=== PATIENT | female | born 1970 | race Caucasian/White ===

== ENCOUNTER 2017-02-01 15:05 | Day surgery (SDC) | payer OTHER ==
[~2017-02-01] VITALS: Ht 165.1 cm; Wt 104.9 kg
[2017-02-01] VITALS (20 sets, daily range): BP systolic 111–177; BP diastolic 54–94; PULSE 62–101; RESP 16–22; TEMP 96.9–98.3; O2SAT 90–100; Ht 165.1 cm; Wt 104.9 kg
--- OUTSIDE RECORDS SUMMARY | 2017-02-01 15:10 | XMS REPORT | Summary of Care ---
Author Author Mann Avery D.O. Organization Unknown Address Unknown Phone Unavailable Care Team Providers Care Teletypewriter Operator Name Role Phone Mann Avery D.O. Unavailable Unavailable Kris Dunn, Ivan Unavailable Unavailable Jose Dunn, Lionel Unavailable Unavailable Mann Avery PP Unavailable Unavailable Unavailable Functional Status Functional Status Health Issues* Name Dates Details Functional status health issues are not documented Status: Cognitive Status Health Issues* Name Dates Details Cognitive status health issues are not documented Status: Problems Name Dates Details Cutaneous candidiasis (112.3, B37.2) Status: Active Atopic dermatitis (691.8, L20.9) Status: Active Chronic laryngitis (476.0, J37.0) Status: Active Esophageal reflux (530.81, K21.9) Status: Active Edema (782.3, R60.9) Status: Active Hypertension (401.9, I10) Status: Active Vasculitis (447.6, I77.6) Status: Active Allergic purpura (287.0, D69.0) Status: Active Lipoma of skin (214.1, D17.30) Status: Active Abscess, abdomen (567.22, K65.0) Status: Active Candidiasis, intertriginous (112.3, B37.2) Status: Active 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, 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 Fever (780.60, R50.9) Status: Active Influenza A with respiratory manifestations (487.1, J11.1) Status: Active Candidiasis, mouth (112.0, B37.0) Status: Active Cough (786.2, R05) Status: Active Type 1 diabetes mellitus (250.01, E10.9) Status: Active Hematuria (599.70, R31.9) Status: Active Type 2 diabetes mellitus (250.00, E11.9) Status: Active Proteinuria (791.0, R80.9) Status: Active Medications Name Dates Details Estradiol 1 MG Oral Tablet take one tablet by mouth every day Quantity: 30 Mann Avery D.O.* Started 07-Jun-2011 ActiveSimvastatin 20 MG Oral Tablet TAKE ONE TABLET BY MOUTH EVERY NIGHT AT BEDTIME * Quantity: 90 Refills: 3 Mann Avery D.O.* Started 20-Sep-2011 ActiveLosartan Potassium 50 MG Oral Tablet take one tablet by mouth every day * Quantity: 90 Refills: 2 Mann Avery D.O.* Started 18-Dec-2011 ActiveCetirizine HCl - 10 MG Oral Tablet TAKE 1 TABLET BY MOUTH DAILY. * Quantity: 100 Refills: 0 Mann Avery D.O.* Started 18-Dec-2011 ActiveMultiple Vitamin Oral Tablet TAKE 1 TABLET DAILY. * Refills: 0 Lionel Garcia M.D.* Started 18-Dec-2011 ActiveGlyBURIDE 5 MG Oral Tablet TAKE 1 TABLET BY MOUTH TWO TIMES A DAY * Quantity: 120 Refills: 5 Mann Avery D.O.* Started ActiveMontelukast Sodium 10 MG Oral Tablet take one tablet by mouth every day * Quantity: 30 Refills: 5 Mann Avery D.O.* Started 13-Jun-2012 ActiveProAir HFA 108 (90 Base) MCG/ACT Inhalation Aerosol Solution INHALE TWO PUFFS THREE TIMES DAILY * Quantity: 1 Refills: 0 Mann Avery D.O.* Started 16-Oct-2013 Active8.5 GM Inhaler Lantus SoloStar 100 UNIT/ML Subcutaneous Solution Pen-injector TAKE 80 UNITS EVERY NIGHT AT BEDTIME DX: 250.01 * Quantity: 45 Refills: 5 Mann Avery D.O.* Started ActiveAzaTHIOprine 50 MG Oral Tablet TAKE 3 TABLETS BY MOUTH DAILY * Quantity: 90 Refills: 5 Vladislav Ponce M.D.* Started ActiveFluconazole 150 MG Oral Tablet Take 1 tablet daily * Quantity: 7 Refills: 0 Mann Avery D.O.* Started 19-Oct-2014 ActiveNystatin 423670 UNIT/ML Mouth/Throat Suspension CHEW 5 ML Twice daily Swish and Swallow * Quantity: 1 Refills: 1 Mann Avery D.O.* Started 19-Oct-2014 Nzhobc23 ML Bottle Levofloxacin 500 MG Oral Tablet Take 1 tablet daily * Quantity: 7 Refills: 0 Mann Avery D.O.* Started 19-Oct-2014 ActiveTradjenta 5 MG Oral Tablet TAKE 1 TABLET DAILY DIRECTED. * Refills: 0 Mann Avery.O.* Started 30-Oct-2014 Active Allergies and Adverse Reactions Name Dates Details Clindamycin Reaction: Hives (Severe) Status: Active MethylPREDNISolone Acetate SUSP Status: Active Zithromax TABS Status: Active Latex Status: Denied Past Medical History Name Dates Details History of acute bronchitis (V12.69, Z87.09) Status: Resolved History of Acute sinusitis (461.9, J01.90) Status: Resolved History of Acute upper respiratory infection (465.9, J06.9) Status: Resolved History of Asthmatic bronchitis (493.90, J45.909) Status: Resolved History of fever (V13.89, Z87.898) Status: Resolved History of Otitis media of both ears (382.9, H66.93) Status: Resolved History of Pre-operative exam (V72.84, Z01.818) Status: Resolved History of Sinusitis (473.9, J32.9) Status: Resolved History of Tenosynovitis of thumb (727.05, M65.88) Status: Resolved Procedures Procedure Dates Details History of Hand Incision Tendon Sheath Of A Finger Completed: History of Neuroplasty Decompression Median Nerve At Carpal Tunnel History of Section History of Breast Surgery Reduction Procedure History of Cholecystectomy Laparoscopic History of Total Abdominal Hysterectomy With Removal Of Both Ovaries CT AB/ PEL WITH IV AND ORAL CONTRAST Ordered:30-Oct-2014 Immunization Name Dates Details Td Administered on:07-Jun-2001 Family History Mother* Name Dates Details Family history of diabetes mellitus (V18.0, Z83.3) Status: Active Father* Name Dates Details Family history of diabetes mellitus (V18.0, Z83.3) Status: Active Social History Name Dates Details Smoking Status* Current every day smoker Stopped 01-Sep-2014 * Former smoker Vital Signs Date Test Result Details 30-Oct-2014 09:22 BP Systolic 146 mm[Hg] Status: BP Diastolic 84 mm[Hg] Status: Heart Rate 96 /min Status: Temperature 98.5 f Status: Weight 263 lb Status: Body Mass Index Calculated 44.45 kg/m2 Status: Body Surface Area Calculated 2.21 m2 Status: 19-Oct-2014 15:36 BP Systolic 136 mm[Hg] Status: BP Diastolic 84 mm[Hg] Status: Heart Rate 84 /min Status: Temperature 98.7 f Status: Weight 263 lb Status: Body Mass Index Calculated 44.45 kg/m2 Status: Body Surface Area Calculated 2.21 m2 Status: 16-Oct-2014 13:57 BP Systolic 130 mm[Hg] Status: BP Diastolic 90 mm[Hg] Status: Heart Rate 108 /min Status: Temperature 100.8 f Status: Weight 260 lb Status: Body Mass Index Calculated 43.94 kg/m2 Status: Body Surface Area Calculated 2.2 m2 Status: Results Date Description Value Details 16-Oct-2014 14:45 INFLUENZA A/B ANTIGEN 5320 *INFLUENZA A/B ANTIGEN Positive for Influenza A (Abnormal) Range: Negative 19-Oct-2014 16:27 XRay CHEST-PA & LAT Comments: Exam Date: 16: 09Dictation Date: 16:27 X CHEST PA & LAT (Better) 28-Oct-2014 16:28 Urinalysis, reflex to Micro and Culture ([facility]) 8016 pH 6.0 (Better) Range: 5.0-7.5 SP GRAVITY 1.030 (Better) Range: 1.010-1.030 APPEARANCE Cloudy (Abnormal) Range: Clear COLOR Yellow (Better) Range: Straw-Yellow PROTEIN 100 mg/dL (Abnormal) Range: Negative-Trace GLUCOSE 1000 mg/dL (Abnormal) Range: Negative KETONES Negative mg/dL (Better) Range: Negative BILIRUBIN Negative (Better) Range: Negative BLOOD 3+ (Abnormal) Range: Negative UROBIL 0.2 EU/dL (Better) Range: 0.2-1.0 NITRITE Negative (Better) Range: Negative LEUKOCYTES Negative (Better) Range: Negative 17:02 Urine Microscopic UMIC RBC 11-20 /HPF (Abnormal) Range: 0-2 BACTERIA Trace /HPF (Better) Range: Negative-Trace EPITH 3-5 /HPF (Better) Range: 0-10 17:10 Comprehensive Metabolic Panel 1212 SODIUM 137 mmol/L (Better) Range: 133-144 POTASSIUM 4.2 mmol/L (Better) Range: 3.5-5.1 CHLORIDE 97 mmol/L (Below low threshold) Range: 98-110 CARBON DIOXIDE 28.6 mmol/L (Better) Range: 23.0-33.0 ANION GAP 11 mmol/L (Better) Range: 6-16 BUN 15 mg/dL (Better) Range: 7-18 CREATININE, SERUM 0.86 mg/dL (Better) Range: 0.43-1.13 BUN:CREATININE RATIO 17 (Better) EST GFR, >60 ml/min (Better) Range: >60 EST GFR, NON-AFR YEMENI >60 ml/min (Better) Range: >60 Comments: EST GFR is reported in ml/min per 1.73 m2 of body surface area. For -Mexican, please multiple result by 1.2.----- GLUCOSE 337 mg/dL (Above high threshold) Range: 70-100 ALK PHOSPHATASE 76 U/L (Better) Range: 46-116 Comments: Please Note: New Reference Range effective 2013.----- TOTAL BILIRUBIN 0.60 mg/dL (Better) Range: 0.20-1.00 AST 17 U/L (Better) Range: 8-35 ALT 18 U/L (Better) Range: 12-78 ALBUMIN 3.2 g/dL (Below low threshold) Range: 3.4-5.0 TOTAL PROTEIN 7.5 g/dL (Better) Range: 6.4-8.2 A/G RATIO 0.7 units (Below low threshold) Range: 1.0-1.8 CALCIUM 9.3 mg/dL (Better) Range: 8.5-10.1 29-Oct-2014 08:39 HEMOGLOBIN A1C 3507 Hemoglobin A1C 11.2 % (Better) ESTIMATED AVG. GLUCOSE 275 (Better) Plan of Care Planned Observations* Name Dates Details Planned Goals not documented Goal Planned Encounters* Appointment; Provider: Vladislav Ponce On 08-Feb-2015 15:45 * Appointment; Provider: Mann Avery On 04-Dec-2014 13:30 * Appointment; Provider: Benji Olson On 09-Nov-2014 10:30 Instructions * Instructions not documented Encounters Appointment; Mann Avery Encounter Diagnosis: Problem not documented On 30-Oct-2014 09:30 Appointment; Mann Avery Encounter Diagnosis: Problem not documented On 19-Oct-2014 15:45 Appointment; Kairn Lackey Encounter Diagnosis: Problem not documented On 16-Oct-2014 13:15 Appointment; Vladislav oPnce Encounter Diagnosis: Problem not documented On 09-Oct-2014 15:30 Appointment; Heriberto Mckeon Encounter Diagnosis: Problem not documented On 02-Oct-2014 07:45 Appointment; Vaughn London Encounter Diagnosis: Problem not documented On 11-Sep-2014 09:00 Appointment; Vaughn London Encounter Diagnosis: Problem not documented On 01-Sep-2014 13:15 Appointment; Mann Avery Encounter Diagnosis: Problem not documented On 28-Aug-2014 15:15 Appointment; Mann Avery Encounter Diagnosis: Problem not documented On 08-Jul-2014 15:30 Appointment; Vladislav Ponce Encounter Diagnosis: Problem not documented On 03-Jul-2014 10:15 Appointment; Tito Almaguer Encounter Diagnosis: Problem not documented On 23-Jun-2014 15:30 Appointment; Mann Avery Encounter Diagnosis: Problem not documented On 11-Jun-2014 09:15 Appointment; Vladislav Ponce Encounter Diagnosis: Problem not documented On 02-Jun-2014 16:00 Appointment; Mann Avery Encounter Diagnosis: Problem not documented On 28-May-2014 15:45 Appointment; Vladislav Ponce Encounter Diagnosis: Problem not documented On 11:15 Appointment; Tito Almaguer Encounter Diagnosis: Problem not documented On 13:15 Appointment; Tito Almaguer Encounter Diagnosis: Problem not documented On 12:30 Appointment; Vladislav Ponce Encounter Diagnosis: Problem not documented On 11:30 Appointment; Mann Avery Encounter Diagnosis: Problem not documented On 10:45 Appointment; Mann Avery Encounter Diagnosis: Problem not documented On 15:00 Appointment; Mann Avery Encounter Diagnosis: Problem not documented On 02-Mar-2014 09:30 Appointment; Mann Avery Encounter Diagnosis: Problem not documented On 27-Jan-2014 12:45 Appointment; Mann Avery Encounter Diagnosis: Problem not documented On 10-Nov-2013 11:00 Appointment; Mann Avery Encounter Diagnosis: Problem not documented On 16-Oct-2013 11:45 Appointment; Mann Avery Encounter Diagnosis: Problem not documented On 29-Jul-2013 15:30 Appointment; Mann Avery Encounter Diagnosis: Problem not documented On 14-Jul-2013 15:45 Appointment; Mann Avery Encounter Diagnosis: Problem not documented On 30-Jun-2013 15:30 Appointment; Mann Avery Encounter Diagnosis: Problem not documented On 24-Jun-2013 12:30 Appointment; Mann Avery Encounter Diagnosis: Problem not documented On 20-Jun-2013 16:15 Appointment; Mann Avery Encounter Diagnosis: Problem not documented On 18-Jun-2013 16:15 Appointment; Mann Avery Encounter Diagnosis: Problem not documented On 16-Jun-2013 09:00 Appointment; Dave Gilbert Encounter Diagnosis: Problem not documented On 14-Jun-2013 08:30 Appointment; Mann Avery Encounter Diagnosis: Problem not documented On 29-Jan-2013 13:00 Appointment; Lionel Garcia Encounter Diagnosis: Problem not documented On 27-Jan-2013 15:30 Appointment; Mann Avery Encounter Diagnosis: Problem not documented On 25-Nov-2012 14:45
--- OUTSIDE RECORDS SUMMARY | 2017-02-01 15:10 | XMS REPORT | Summary of Care ---
Author Author Mann Avery D.O. Organization Unknown Address [address] [place] [place], [place] [id number] Phone Unavailable Care Team Providers Care Regeneration Operator Name Role Phone Mann Avery D.O. Unavailable Unavailable Ivan Ponce M.D. Unavailable Unavailable Jose Dunn, Lionel Unavailable Unavailable Mann Avery Unavailable Unavailable Unavailable Unavailable Functional Status Name Dates Details Functional status health issues are not documented Status: Name Dates Details Cognitive status health issues are not documented Status: Problems Name Dates Details Cutaneous candidiasis (112.3, B37.2) Status: Active Chronic laryngitis (476.0, J37.0) Status: Active Esophageal reflux (530.81, K21.9) Status: Active Edema (782.3, R60.9) Status: Active Vasculitis (447.6, I77.6) Status: Active Allergic purpura (287.0, D69.0) Status: Active Lipoma of skin (214.1, D17.30) Status: Active Abscess, abdomen (567.22, K65.1) Status: Active Influenza A with respiratory manifestations (487.1, J10.1) Status: Active Type 1 diabetes mellitus (250.01, E10.9) Status: Active Proteinuria (791.0, R80.9) Status: Active Nephrolithiasis (592.0, N20.0) Status: Active Type 2 diabetes mellitus (250.00, E11.9) Status: Active Allergic rhinitis (477.9, J30.9) Status: Active 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, 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 Hair loss (704.00, L65.9) Status: Active Hypertension (401.9, I10) Status: Active Uncontrolled diabetes mellitus (250.02, E11.65) Status: Active Acute ethmoidal sinusitis, recurrence not specified (461.2, J01.20) Status: Active Acute maxillary sinusitis, recurrence not specified (461.0, J01.00) Status: Active Wheezing symptom (786.07, R06.2) Status: Active Acute bronchitis, unspecified organism (466.0, J20.9) Status: Active Bladder infection (595.9, N30.90) Status: Active Urinary tract infection (599.0, N39.0) Status: Active Medications Name Dates Details Estradiol 1 MG Oral Tablet TAKE ONE TABLET BY MOUTH DAILY - PT NEEDS APPT Quantity: 30 Bennie D.Zechariha.Mann * Start 06-Oct-2016 Active Simvastatin 20 MG Oral Tablet TAKE ONE TABLET BY MOUTH AT BEDTIME * Quantity: 90 Refills: 4 Bennie D.O.Mann * Start 22-May-2016 Active Losartan Potassium 50 MG Oral Tablet Take one tablet by mouth daily * Quantity: 90 Refills: 2 Bennie Asif.Zechariah.Mann * Start 29-Dec-2016 Active Multiple Vitamin TABS TAKE 1 TABLET DAILY. * Refills: 0 Lionel Garcia M.D. * Start 18-Dec-2011 Active GlyBURIDE 5 MG Oral Tablet Take One Tablet By Mouth Twice Daily * Quantity: 120 Refills: 4 Bennie D.O.Mann * Start 29-Dec-2016 Active Montelukast Sodium 10 MG Oral Tablet Take one tablet by mouth daily * Quantity: 30 Refills: 4 Bennie Asif.Mann Jang * Start 29-Dec-2016 Active Lantus SoloStar 100 UNIT/ML Subcutaneous Solution Pen-injector INJECT 80 UNITS SUBCUTANEOUSLY EVERY NIGHT AT BEDTIMEDX: E11.9 * Quantity: 45 Refills: 5 Bennie Asif.Mann Jang * Start Active AzaTHIOprine 50 MG Oral Tablet take 3 tablets by mouth every day * Quantity: 90 Refills: 11 Vladislav Ponce M.D. * Start Active Invokana 300 MG Oral Tablet Take 1 tablet daily * Quantity: 30 Refills: 5 Bennie D.OMann Santiago * Start 11-Jan-2015 Active Levemir FlexTouch 100 UNIT/ML Subcutaneous Solution Pen-injector INJECT 80 UNIT Bedtime DX: E11.9 * Quantity: 75 Refills: 3 Bennie D.O.Mann * Start 25-Feb-2016 Active Ciprofloxacin HCl - 500 MG Oral Tablet TAKE 1 TABLET TWICE DAILY. * Quantity: 10 Refills: 0 Mann Avery D.O. * Start 23-Jan-2017 Active Phenazopyridine HCl - 100 MG Oral Tablet Take 1 tablet twice daily * Quantity: 6 Refills: 0 Bennie D.Mann Jang * Start 23-Jan-2017 Active Allergies and Adverse Reactions Name Dates Details Clindamycin (Allergy) Reaction: Hives (Severe) Status: Active MethylPREDNISolone Acetate SUSP (Allergy) Status: Active Zithromax TABS (Allergy) Status: Active Latex (Allergy) Status: Denied Past Medical History Name Dates Details History of acute bronchitis (V12.69, Z87.09) Status: Resolved History of Acute sinusitis (461.9, J01.90) Status: Resolved History of Acute upper respiratory infection (465.9, J06.9) Status: Resolved History of Asthmatic bronchitis (493.90, J45.909) Status: Resolved History of atopic dermatitis (V13.3, Z87.2) Status: Resolved History of candidiasis of mouth (V12.09, Z86.19) Status: Resolved History of Candidiasis, intertriginous (112.3, B37.2) Status: Resolved History of fever (V13.89, Z87.898) Status: Resolved History of fever (V13.89, Z87.898) Status: Resolved History of hematuria (V13.09, Z87.448) Status: Resolved History of Otitis media of both ears (382.9, H66.93) Status: Resolved History of Pre-operative exam (V72.84, Z01.818) Status: Resolved History of Sinusitis (473.9, J32.9) Status: Resolved History of Tenosynovitis of thumb (727.05, M65.9) Status: Resolved History of Yeast infection (112.9, B37.9) Status: Resolved Procedures Procedure Dates Details History of Hand Incision Tendon Sheath Of A Finger Completed: History of Neuroplasty Decompression Median Nerve At Carpal Tunnel History of Section History of Breast Surgery Reduction Procedure History of Cholecystectomy Laparoscopic History of Total Abdominal Hysterectomy With Removal Of Both Ovaries Urinalysis, reflex to Micro and Culture ([facility]) 8016 Ordered: Jan-2017 Immunization Name Dates Details Td on: 07-Jun-2001 Family History Name Dates Details Family history of hypertension (V17.49, Z82.49) Comments: Family History Status: Active Family history of kidney stones (V18.69, Z84.1) Comments: Family History Status: Active Family history of malignant neoplasm (V16.9, Z80.9) Comments: Family History Status: Active Name Dates Details Family history of diabetes mellitus (V18.0, Z83.3) Status: Active Name Dates Details Family history of diabetes mellitus (V18.0, Z83.3) Status: Active Family history of malignant neoplasm of urinary bladder (V16.52, Z80.52) Status: Active Social History Name Dates Details Unknown if ever smoked Vital Signs Date Test Result Details 23-Jan-2017 11:36 BP Systolic 132 mm[Hg] Status: Comments: Location: ; Position: BP Diastolic 76 mm[Hg] Status: Comments: Location: ; Position: Temperature 97.7 f Status: Comments: Method: Heart Rate 88 /min Status: Comments: Location: ; Physical Findings 20 Status: Comments: Respiration Physical Findings 97 Status: Comments: O2 Saturation Results Date Description Value Details 23-Jan-2017 11:51 Urinalysis, reflex to Micro and Culture ([facility]) 8016 Comments: Items were attached to this order: UA for [facility] were attached to this order: Urinalysis Label pH 5.5 Range: 5.0-7.5 SP GRAVITY 1.030 Range: 1.010-1.030 APPEARANCE Cloudy (Abnormal) Range: Clear COLOR Yellow Range: Straw-Yellow PROTEIN 100 mg/dL (Abnormal) Range: Negative-Trace GLUCOSE 1000 mg/dL (Abnormal) Range: Negative KETONES Negative mg/dL Range: Negative BILIRUBIN Negative Range: Negative BLOOD 3+ (Abnormal) Range: Negative UROBIL 0.2 EU/dL Range: 0.2-1.0 NITRITE Negative Range: Negative LEUKOCYTES Negative Range: Negative 13:22 Urine Microscopic UMIC Comments: Items were attached to this order: UA for [facility] were attached to this order: Urinalysis Label WBC 3-5 /HPF Range: 0-5 RBC 3-5 /HPF (Abnormal) Range: 0-2 BACTERIA 1+ /HPF (Abnormal) Range: Negative-Trace U AMORPH 1+ /HPF U YEAST Present (Abnormal) Range: Absent Plan of Care Name Dates Details Planned Observations Planned Goals not documented Planned Encounters Appointment; Provider: Vladislav Ponce M.D. On 13-Jul-2017 15:45 Instructions Name Dates Details Instructions not documented Encounters Appointment; Mann Avery D.O. Encounter Diagnosis: Problem not documented On 23-Jan-2017 11:29 Appointment; Mann Avery D.O. Encounter Diagnosis: Problem not documented On 12-Dec-2016 16:00 Appointment; Mann Avery D.O. Encounter Diagnosis: Problem not documented On 26-Oct-2016 11:45 Appointment; Mann Avery D.O. Encounter Diagnosis: Problem not documented On 06-Oct-2016 15:30 Appointment; Mann Avery D.O. Encounter Diagnosis: Problem not documented On 21-Sep-2016 14:45 Appointment; Vladislav Ponce M.D. Encounter Diagnosis: Problem not documented On 07-Jul-2016 14:45 Appointment; Vladislav Ponce M.D. Encounter Diagnosis: Problem not documented On 07-Jun-2015 16:00 Appointment; Mann Avery D.O. Encounter Diagnosis: Problem not documented On 31-May-2015 15:45 Appointment; Mann Avery D.O. Encounter Diagnosis: Problem not documented On 08:45
--- OUTSIDE RECORDS SUMMARY | 2017-02-01 15:11 | XMS REPORT ---
Author Author GENERATED, SYSTEM Organization Unknown Address Unknown Phone Unavailable Care Team Providers Care Vulnerability Assessment Analyst Name Role Phone UNASSIGNED DOCTOR , DOCTOR PP [phone] Reason For Visit Chief Complaint 599.7 Social History Functional Status Vital Signs Results Problems Encounter Diagnosis No relevant problems exist. Encounters Encounter Diagnosis No relevant problems exist. Plan of Care Procedures No relevant procedures performed. Immunizations No immunizations administered or ordered. Hospital Course Hospital Discharge Instructions Allergies, Adverse Reactions, Alerts * Latex Allergy has not been assessed. * IV Contrast Allergy has not been assessed. Medication Medication reconciliation has not been performed.
--- OUTSIDE RECORDS SUMMARY | 2017-02-01 15:11 | XMS REPORT | Summary of Care ---
Author Author Mann Avery D.O. Organization Unknown Address Unknown Phone Unavailable Care Team Providers Care Circuits Engineer Name Role Phone Mann Avery D.O. Unavailable [...] 0 Mann Avery D.O.* Started 19-Oct-2014 ActiveNystatin 123423 UNIT/ML Mouth/Throat Suspension CHEW 5 ML Twice daily Swish and Swallow * Quantity: 1 Refills: 1 Mann Avery D.O.* Started 19-Oct-2014 [id number] ML Bottle Levofloxacin 500 MG Oral Tablet [...] 16:28 Urinalysis, reflex to Micro and Culture ([facility]) 8016 pH 6.0 (Better) Range: 5.0-7.5 SP [...] ml/min (Better) Range: >60 EST GFR, NON-AFR TAJIK >60 ml/min (Better) Range: >60 Comments: EST GFR is reported in ml/min per 1.73 m2 of body surface area. For -Croatian, please multiple result by 1.2.----- GLUCOSE 337 [...] Problem not documented On 19-Oct-2014 15:45 Appointment; Karin Lackey Encounter Diagnosis: Problem not documented On 16-Oct-2014 13:15 Appointment; Vladislav Pnoce Encounter Diagnosis: Problem not documented On 09-Oct-2014 [...] Diagnosis: Problem not documented On 25-Nov-2012 14:45 Appointment; Mann Avery Encounter Diagnosis: Problem not documented On 04-Nov-2012 12:45
--- OUTSIDE RECORDS SUMMARY | 2017-02-01 15:11 | XMS REPORT | Summary of Care ---
Author Author Vladislav Ponce M.D. Unknown Address Unknown Phone Unavailable Care Team Providers Care Technology Applications Teacher Name Role Phone Mann Avery D.O. Unavailable Unavailable Ivan Ponce M.D. Unavailable Unavailable Lionel Garcia M.D. Unavailable Unavailable Mann Avery Unavailable Unavailable Unavailable [...] Active Abscess, abdomen (567.22, K65.1) Status: Active Candidiasis, intertriginous (112.3, B37.2) Status: Active Fever (780.60, R50.9) Status: Active Influenza A with respiratory manifestations (487.1, J10.1) Status: Active Candidiasis, mouth (112.0, B37.0) Status: Active Type 1 diabetes mellitus (250.01, E10.9) Status: Active Proteinuria (791.0, R80.9) Status: Active Hematuria (599.70, R31.9) Status: Active Nephrolithiasis (592.0, N20.0) Status: Active Type 2 diabetes mellitus (250.00, E11.9) Status: Active Yeast infection (112.9, B37.9) Status: Active Allergic rhinitis (477.9, J30.9) Status: Active 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 * Start 06-Jul-2016 Active Simvastatin 20 MG Oral Tablet TAKE ONE TABLET BY MOUTH AT BEDTIME * Quantity: 90 Refills: 4 Mann Avery D.O. * Start 22-May-2016 Active Losartan Potassium 50 MG Oral Tablet Take one tablet by mouth daily * Quantity: 90 Refills: 1 Mann Avery D.O. * Start 18-Dec-2011 Active Cetirizine HCl - 10 MG Oral Tablet TAKE 1 TABLET BY MOUTH DAILY. * Quantity: 100 Refills: 0 Mann Avery D.O. * Start 18-Dec-2011 Active Multiple Vitamin TABS TAKE 1 TABLET DAILY. * Refills: 0 Lionel Garcia M.D. * Start 18-Dec-2011 Active GlyBURIDE 5 MG Oral Tablet Take One Tablet By Mouth Twice Daily * Quantity: 120 Refills: 5 Mann Avery D.O. * Start Active Montelukast Sodium 10 MG Oral Tablet take one tablet by mouth every day * Quantity: 30 Refills: 4 Mann Avery D.O. * Start 22-May-2016 Active ProAir HFA 108 (90 Base) MCG/ACT Inhalation Aerosol Solution INHALE TWO PUFFS THREE TIMES DAILY * Quantity: 1 Refills: 0 Mann Avery D.O. Start 16-Oct-2013 Active 8.5 GM Inhaler Lantus SoloStar 100 UNIT/ML Subcutaneous Solution Pen-injector INJECT 80 UNITS SUBCUTANEOUSLY EVERY NIGHT AT BEDTIMEDX: E11.9 * Quantity: 45 Refills: 5 Mann Avery D.O. * Start Active AzaTHIOprine 50 MG Oral Tablet take 3 tablets by mouth every day * Quantity: 90 Refills: 11 Vladislav Ponce M.D. * Start Active Invokana 300 MG Oral Tablet Take 1 tablet daily * Quantity: 30 Refills: 5 Mann Avery D.O. Start 11-Jan-2015 Active Nasonex 50 MCG/ACT Nasal Suspension INSTILL 2 SQUIRT Twice daily PRN * Refills: 6 Bennie Asif.O., Mann * Start Active 17 GM Inhaler LevoFLOXacin 500 MG Oral Tablet TAKE 1 TABLET DAILY DIRECTED. * Quantity: 10 Refills: 0 Avery D.O., Mann * Start 31-May-2015 Active Levemir FlexTouch 100 UNIT/ML Subcutaneous Solution Pen-injector INJECT 80 UNIT Bedtime DX: E11.9 * Quantity: 75 Refills: 3 Avery D.O., Mann * Start 25-Feb-2016 Active Allergies and Adverse Reactions Name Dates [...] Tenosynovitis of thumb (727.05, M65.9) Status: Resolved Procedures Procedure Dates Details History of Hand Incision Tendon Sheath Of A Finger Completed: History of Neuroplasty Decompression Median Nerve At Carpal Tunnel History of Section History of Breast Surgery Reduction Procedure History of Cholecystectomy Laparoscopic History of Total Abdominal Hysterectomy With Removal Of Both Ovaries Procedures not documented Immunization Name Dates Details Td on: 07-Jun-2001 [...] smoked Vital Signs Date Test Result Details No Known Vitals to report Results Date Description Value Details Results not documented Plan of Care Name Dates Details Planned Observations Planned Goals not documented Planned Encounters Appointment; Provider: Vladislav Ponce M.D. On 13-Jul-2017 15:45 Interventions Provided Medication Changes* AzaTHIOprine 50 MG Oral Tablet - Renew Instructions Name Dates Details Instructions not documented Encounters Appointment; Vladislav Ponce M.D. Encounter Diagnosis: Problem not documented On 07-Jun-2015 16:00 Appointment; Mann Avery D.O. Encounter Diagnosis: Problem not documented On 31-May-2015 15:45 Appointment; Mann Avery D.O. Encounter Diagnosis: Problem not documented On 08:45 Appointment; Mann Avery D.O. Encounter Diagnosis: Problem not documented On 11-Jan-2015 15:30 Appointment; Benji Olson M.D.|F.A.C.S.|Shaun,RIDDHI|Shaun,RIDDHI, Encounter Diagnosis: Problem not documented On 18-Dec-2014 08:30 Appointment; Mann Avery D.O. Encounter Diagnosis: Problem not documented On 25-Nov-2014 14:00 Appointment; Benji Olson M.D.|F.A.C.S.|Shaun,RIDDHI|Shaun,RIDDHI, Encounter Diagnosis: Problem not documented On 09-Nov-2014 10:30 Appointment; Mann Avery D.O. Encounter Diagnosis: Problem not documented On 30-Oct-2014 09:30 Appointment; Mann Avery D.O. Encounter Diagnosis: Problem not documented On 19-Oct-2014 15:45 Appointment; Karin Lackey M.D. Encounter Diagnosis: Problem not documented On 16-Oct-2014 13:15 Appointment; Vladislav Ponce M.D. Encounter Diagnosis: Problem not documented On 09-Oct-2014 15:30 Appointment; Heriberto Mckeon D.O. Encounter Diagnosis: Problem not documented On 02-Oct-2014 07:45 Appointment; Vaughn London M.D.|Jaiden|RIDDHI Dunn|Shaun,RIDDHI, Encounter Diagnosis: Problem not documented On 11-Sep-2014 09:00 Appointment; Vaughn London M.D.|Jaiden|Shaun,CYNTHIA,RIDDHI, Encounter Diagnosis: Problem not documented On 01-Sep-2014 13:15 Appointment; Mann Avery D.O. Encounter Diagnosis: Problem not documented On 28-Aug-2014 15:15 Appointment; Mann Avery D.O. Encounter Diagnosis: Problem not documented On 08-Jul-2014 15:30"
--- OUTSIDE RECORDS SUMMARY | 2017-02-01 15:11 | XMS REPORT | Summary of Care ---
Author Author Mann Avery D.O. Organization Unknown Address [address], [place] [id number] Phone Unavailable Care Team Providers Care President [place] Name Role Phone Mann Avery D.O. Unavailable [...] Active Hair loss (704.00, L65.9) Status: Active Medications Name Dates Details Estradiol 1 MG Oral Tablet Take one tablet by mouth daily pt needs appt Quantity: 30 Bennie D.Zechariah.Mann * Start 06-Jul-2016 Active Cetirizine HCl - 10 MG Oral Tablet TAKE 1 TABLET BY MOUTH DAILY. * Quantity: 100 Refills: 0 Bennie D.Zechariah.Mann * Start 18-Dec-2011 Active Montelukast Sodium 10 MG Oral Tablet take one tablet by mouth every day * Quantity: 30 Refills: 4 Bennie Asif.O.Mann * Start 22-May-2016 Active ProAir HFA 108 (90 Base) MCG/ACT Inhalation Aerosol Solution INHALE TWO PUFFS THREE TIMES DAILY * Quantity: 1 Refills: 0 Bennie Asif.Zechariah.Mann * Start 16-Oct-2013 Active 8.5 GM Inhaler Lantus SoloStar 100 UNIT/ML Subcutaneous Solution Pen-injector INJECT 80 UNITS SUBCUTANEOUSLY EVERY NIGHT AT BEDTIMEDX: E11.9 * Quantity: 45 Refills: 5 Avery D.O.Mann * Start Active AzaTHIOprine 50 MG Oral Tablet take 3 tablets by mouth every day * Quantity: 90 Refills: 11 Vladislav Ponce M.D. * Start Active Invokana 300 MG Oral Tablet Take 1 tablet daily * Quantity: 30 Refills: 5 Bennie D.O.Mann * Start 11-Jan-2015 Active Simvastatin 20 MG Oral Tablet TAKE ONE TABLET BY MOUTH AT BEDTIME * Quantity: 90 Refills: 4 Avery D.O.Mann * Start 22-May-2016 Active Levemir FlexTouch 100 UNIT/ML Subcutaneous Solution Pen-injector INJECT 80 UNIT Bedtime DX: E11.9 * Quantity: 75 Refills: 3 Avery D.O.Mann * Start 25-Feb-2016 Active LevoFLOXacin 500 MG Oral Tablet TAKE 1 TABLET DAILY DIRECTED. * Quantity: 10 Refills: 0 Avery D.O.Mann * Start 31-May-2015 Active GlyBURIDE 5 MG Oral Tablet Take One Tablet By Mouth Twice Daily * Quantity: 120 Refills: 5 Avery D.O.Mann * Start Active Multiple Vitamin TABS TAKE 1 TABLET DAILY. * Refills: 0 Lionel Garcia M.D. * Start 18-Dec-2011 Active Losartan Potassium 50 MG Oral Tablet Take one tablet by mouth daily * Quantity: 90 Refills: 1 Bennie Regalado, Mann * Start 18-Dec-2011 Active Nasonex 50 MCG/ACT Nasal Suspension INSTILL 2 SQUIRT Twice daily PRN * Refills: 6 Bennie Asif.Mann Jang * Start Active 17 GM Inhaler Allergies and Adverse Reactions Name Dates Details [...] Abdominal Hysterectomy With Removal Of Both Ovaries Estradiol 607297 Ordered: 07-Sep-2016 Immunization Name Dates Details Td on: 07-Jun-2001 [...] to report Results Date Description Value Details 07-Sep-2016 17:03 Comprehensive Metabolic Panel 1212 Comments: Items were attached to this order: EstradiolItems were attached to this order: FSH, TSH SODIUM 135 mmol/L Range: 133-144 POTASSIUM 3.6 mmol/L Range: 3.5-5.1 CHLORIDE 98 mmol/L Range: 98-110 CARBON DIOXIDE 26.3 mmol/L Range: 23.0-33.0 ANION GAP 11 mmol/L Range: 6-16 BUN 13 mg/dL Range: 7-18 CREATININE, SERUM 0.96 mg/dL Range: 0.55-1.02 BUN:CREATININE RATIO 14 EST GFR, >60 ml/min Range: >60 EST GFR, NON-AFR MALAYSIAN >60 ml/min Range: >60 Comments: EST GFR is reported in ml/min per 1.73 m2 of body surface area. ----- GLUCOSE 397 mg/dL (Above high threshold) Range: 70-100 ALK PHOSPHATASE 105 U/L Range: 46-116 TOTAL BILIRUBIN 0.50 mg/dL Range: 0.20-1.00 AST 16 U/L Range: 8-35 ALT 20 U/L Range: 14-59 ALBUMIN 3.5 g/dL Range: 3.4-5.0 TOTAL PROTEIN 7.1 g/dL Range: 6.4-8.2 A/G RATIO 1.0 units Range: 1.0-1.8 CALCIUM 8.4 mg/dL (Below low threshold) Range: 8.5-10.1 17:17 FREE T4 3604 Comments: Items were attached to this order: EstradiolItems were attached to this order: FSH, TSH FREE T4 0.90 ng/dL Range: 0.80-1.67 17:17 FOLLICLE STIM. HORMONE 3616 Comments: Items were attached to this order: EstradiolItems were attached to this order: FSH, TSH FOLLICLE STIM. HORMONE 15.5 mIU/mL Comments: Female Ranges:Follicular: 2.5-10.2 mIU/mLOvulatory: 3.4-33.4 mIU/mLLuteal: 1.5-9.1 mIU/mLPostmenopausal : 23.0-116.3 mIU/mL----- 17:17 THYROID STIM. HORMONE 3602 Comments: Items were attached to this order : EstradiolItems were attached to this order: FSH, TSH THYROID STIM. HORMONE 1.739 uIU/mL Range: 0.550-4.780 Comments: No established reference ranges for infants and children <2 years of age----- Plan of Care Name Dates Details Planned [...] documented On 11-Jan-2015 15:30 Appointment; Benji Olson M.D.|NicoleC.S.|Shaun,CYNTHIA,RIDDHI, Encounter Diagnosis: Problem not documented On 18-Dec-2014 08:30 Appointment; Mann Avery D.O. Encounter Diagnosis: Problem not documented On 25-Nov-2014 14:00 Appointment; Benji Olson M.D.|Adis.C.S.|RIDDHI Dunn|Shaun,RIDDHI, Encounter Diagnosis: Problem not documented On 09-Nov-2014 [...] documented On 02-Oct-2014 07:45 Appointment; Vaughn London M.D.|Jaiden|Shaun,RIDDHI|Shaun,RIDDHI, Encounter Diagnosis: Problem not documented On 11-Sep-2014 09:00"
--- OUTSIDE RECORDS SUMMARY | 2017-02-01 15:11 | XMS REPORT | Summary of Care ---
Author Author Mann Avery D.O. Organization Unknown Address [address], [place] [id number] Phone Unavailable Care Team Providers Care Book Author Name Role Phone Mann Avery D.O. Unavailable [...] Status: Active Nephrolithiasis (592.0, N20.0) Status: Active Sinusitis (473.9, J32.9) Status: Active Type 2 diabetes mellitus (250.00, E11.9) Status: Active Medications Name Dates Details Estradiol [...] 0 Mann Avery D.O.* Started 19-Oct-2014 ActiveNystatin 573548 UNIT/ML Mouth/Throat Suspension CHEW 5 ML Twice daily Swish and Swallow * Quantity: 1 Refills: 1 Mann Avery D.O.* Started 19-Oct-2014 [id number] ML Bottle Levofloxacin 500 MG Oral Tablet Take 1 tablet daily * Quantity: 7 Refills: 0 Mann Avery D.O.* Started 19-Oct-2014 ActiveTradjenta 5 MG Oral Tablet TAKE 1 TABLET DAILY DIRECTED. * Refills: 0 Mann Avery.Zechariah.* Started 30-Oct-2014 ActiveLevofloxacin 500 MG Oral Tablet Take 1 tablet daily * Quantity: 10 Refills: 0 Mann Avery.O.* Started 25-Nov-2014 ActiveCheratussin AC 100-10 MG/5ML Oral Syrup TAKE 1 TO 2 TEASPOONSFUL EVERY 4 TO 6 HOURS NEEDED FOR COUGH. * Quantity: 1 Refills: 0 Mann Avery.Zechariah.* Started 25-Nov-2014 [id number] ML Bottle Allergies and Adverse Reactions Name Dates Details [...] Abdominal Hysterectomy With Removal Of Both Ovaries Quant Microalbumin 1106 Ordered:08-Jan-2015 Immunization Name Dates Details Td Administered on:07-Jun-2001 Family History Unknown Family Member* Name Dates Details Family history of hypertension (V17.49, Z82.49) Comments: Family History Status: Active Family history of kidney stones (V18.69, Z84.1) Comments: Family History Status: Active Family history of malignant neoplasm (V16.9, Z80.9) Comments: Family History Status: Active Mother* Name Dates Details Family history of diabetes mellitus (V18.0, Z83.3) Status: Active Father* Name Dates Details Family history of diabetes mellitus (V18.0, Z83.3) Status: Active Family history of malignant neoplasm of urinary bladder (V16.52, Z80.52) Status: Active Social History Smoking Status* Unknown if ever smoked Vital Signs Date Test Result Details 11-Jan-2015 15:19 BP Systolic 134 mm[Hg] Status: BP Diastolic 76 mm[Hg] Status: Heart Rate 90 /min Status: Weight 262 lb Status: Body Mass Index Calculated 44.28 kg/m2 Status: Body Surface Area Calculated 2.21 m2 Status: Results Date Description Value Details Results not documented Plan of Care Planned Observations* Name Dates Details Planned Goals not documented Goal Planned Encounters* Appointment; Provider: Benji Olson On 22-Jun-2015 16:00 * Appointment; Provider: Mann Avery On 11-Feb-2015 09:30 * Appointment; Provider: Vladislav Ponce On 08-Feb-2015 15:45 Instructions * Instructions not documented Encounters Appointment; Mann Avery Encounter Diagnosis: Problem not documented On 11-Jan-2015 15:30 Appointment; Benji Olson Encounter Diagnosis: Problem not documented On 18-Dec-2014 08:30 Appointment; Mann Avery Encounter Diagnosis: Problem not documented On 25-Nov-2014 14:00 Appointment; Benji Olson Encounter Diagnosis: Problem not documented On 09-Nov-2014 10:30 Appointment; Mann Avery Encounter Diagnosis: Problem not documented On 30-Oct-2014 09:30 Appointment; Mann Avery Encounter Diagnosis: Problem not documented On 19-Oct-2014 15:45 Appointment; Karin Lackey Encounter Diagnosis: Problem not documented On 16-Oct-2014 13:15 Appointment; Vladislav Ponce Encounter Diagnosis: Problem not documented On 09-Oct-2014 [...]
--- OUTSIDE RECORDS SUMMARY | 2017-02-01 15:11 | XMS REPORT | Summary of Care ---
Author Author Surya Dunn, FACS,, Vaughn Organization Unknown Address [address] [place], [place] [id number] Phone Unavailable Care Team Providers Care Systems Protection Technician Name Role Phone Mann Avery D.O. Unavailable Unavailable Kris Dunn, Ivan Unavailable Unavailable Lionel Garcia M.D. 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 * Refills: 0 Mann Avery D.O.* Started 30-Oct-2014 Active Allergies and Adverse Reactions [...] 16:28 Urinalysis, reflex to Micro and Culture ([facility]) 8016 pH 6.0 (Better) Range: 5.0-7.5 [...] ml/min (Better) Range: >60 EST GFR, NON-AFR [facility] [place] >60 ml/min (Better) Range: >60 Comments: EST GFR is reported in ml/min per 1.73 m2 of body surface area. For -Taiwanese, please multiple result by 1.2.----- GLUCOSE 337 [...] documented On 30-Jun-2013 15:30 Appointment; Mann Avery Diagnosis: Problem not documented On 24-Jun-2013 12:30 [...]
--- OUTSIDE RECORDS SUMMARY | 2017-02-01 15:12 | XMS REPORT | Summary of Care ---
Author Author Mann Avery D.O. Organization Unknown Address Unknown Phone Unavailable Care Team Providers Care Shopping Centre Manager Name Role Phone Mann Avery D.O. Unavailable [...] 0 Mann Avery D.O.* Started 19-Oct-2014 ActiveNystatin 034096 UNIT/ML Mouth/Throat Suspension CHEW 5 ML Twice daily Swish and Swallow * Quantity: 1 Refills: 1 Mann Avery D.O.* Started 19-Oct-2014 [id number] ML Bottle Levofloxacin 500 MG Oral Tablet [...] 16:28 Urinalysis, reflex to Micro and Culture ([facility]) 8016 pH 6.0 (Better) Range: 5.0-7.5 [...] ml/min (Better) Range: >60 EST GFR, NON-AFR SUDANESE >60 ml/min (Better) Range: >60 Comments: EST GFR is reported in ml/min per 1.73 m2 of body surface area. For -Surinamese, please multiple result by 1.2.----- GLUCOSE 337 [...] not documented On 02-Oct-2014 07:45 Appointment; Vaughn Lodnon Encounter Diagnosis: Problem not documented On 11-Sep-2014 [...]
--- OUTSIDE RECORDS SUMMARY | 2017-02-01 15:12 | XMS REPORT | Summary of Care ---
Author Author Mann Avery D.O. Organization Unknown Address [address], [place] [id number] Phone Unavailable Care Team Providers Care Employment Supervisor Name Role Phone Mann Avery D.O. Unavailable [...] Uncontrolled diabetes mellitus (250.02, E11.65) Status: Active Medications Name Dates Details Estradiol 1 MG Oral Tablet TAKE ONE TABLET BY MOUTH DAILY - PT NEEDS APPT Quantity: 30 Mann Avery D.O. * Start 06-Oct-2016 Active Simvastatin 20 MG [...] Mouth Twice Daily * Quantity: 120 Refills: 0 Mann Avery D.O. * Start 15-Sep-2016 Active Montelukast Sodium 10 MG Oral Tablet take one tablet by mouth every day * Quantity: 30 Refills: 4 Mann Avery D.O. * Start 22-May-2016 Active ProAir HFA 108 (90 Base) MCG/ACT Inhalation Aerosol Solution INHALE TWO PUFFS THREE TIMES DAILY * Quantity: 1 Refills: 0 Mann Avery D.O. * Start 16-Oct-2013 Active 8.5 GM Inhaler [...] Quantity: 30 Refills: 5 Mann Avery D.O. * Start 11-Jan-2015 Active Nasonex 50 MCG/ACT Nasal Suspension INSTILL 2 SQUIRT Twice daily PRN * Refills: 6 Bennie Asif.Mann Jang * Start Active 17 GM Inhaler Levemir FlexTouch 100 UNIT/ML Subcutaneous Solution Pen-injector INJECT 80 UNIT Bedtime DX: E11.9 * Quantity: 75 Refills: 3 Bennie D.Mann Jang * Start 25-Feb-2016 Active Allergies and Adverse [...] smoked Vital Signs Date Test Result Details 06-Oct-2016 15:31 BP Systolic 132 mm[Hg] Status: Comments: Location: ; Position: BP Diastolic 88 mm[Hg] Status: Comments: Location: ; Position: Heart Rate 76 /min Status: Comments: Location: ; Weight 238 lb Status: Body Mass Index Calculated 40.22 kg/m2 Status: Body Surface Area Calculated 2.12 m2 Status: 21-Sep-2016 14:56 BP Systolic 136 mm[Hg] Status: Comments: Location: ; Position: BP Diastolic 82 mm[Hg] Status: Comments: Location: ; Position: Heart Rate 82 /min Status: Comments: Location: ; Weight 230.375 lb Status: Body Mass Index Calculated 38.93 kg/m2 Status: Body Surface Area Calculated 2.09 m2 Status: Results Date Description Value Details 07-Sep-2016 17:03 [...] >60 ml/min Range: >60 EST GFR, NON-AFR ETHIOPIAN >60 ml/min Range: >60 Comments: EST GFR [...] infants and children <2 years of age----- 08-Sep-2016 07:46 Estradiol [id number] Comments: Testing performed at: [[facility] [address], [place], [address], Phone: , Hand Therapist: SNOW Butr MD Estradiol 118.7 pg/mL Comments: Adult Female: Follicular phase 12.5 - 166.0 Ovulation phase 85.8 - 498.0 Luteal phase 43.8 - 211.0 Postmenopausal <6.0 - 54.7 1st trimester 215.0 - > 4300.0 Girls (1-10 years) 6.0 - 27.0Roche ECLIA methodology----- Plan of Care Name Dates Details Planned [...] documented On 11-Jan-2015 15:30 Appointment; Benji Olson M.D.|F.A.C.SJack|RIDDHI Dunn|RIDDHI Dunn, Encounter Diagnosis: Problem not documented On 18-Dec-2014 08:30 Appointment; Mann Avery D.O. Encounter Diagnosis: Problem not documented On 25-Nov-2014 14:00 Appointment; Benji Olson M.D.|F.A.C.S.|MMike,RIDDHI|Shaun,FACS, Encounter Diagnosis: Problem not documented On 09-Nov-2014 10:30 Appointment; Mann Avery D.O. Encounter Diagnosis: Problem not documented On 30-Oct-2014 09:30 Appointment; Mann Avery D.O. Encounter Diagnosis: Problem not documented On 19-Oct-2014 15:45 Appointment; Karin Lackey M.D. Encounter Diagnosis: Problem not documented On 16-Oct-2014 13:15 Appointment; Vladislav Ponce M.D. Encounter Diagnosis: Problem not documented On 09-Oct-2014 15:30"
--- OUTSIDE RECORDS SUMMARY | 2017-02-01 15:12 | XMS REPORT | Summary of Care ---
Author Author Mann Avery D.O. Organization Unknown Address Unknown Phone Unavailable Care Team Providers Care Refrigeration Engineer Name Role Phone Avery Mann Unavailable Unavailable Unavailable Unavailable Functional Status Functional Status Health Issues* Name Dates Details No known functional status health issues Status: Cognitive Status Health Issues* Name Dates Details No known cognitive status health issues Status: Problems Name Dates Details Vaginal burning (625.8, N94.9) Status: Active Cutaneous candidiasis (112.3, B37.2) Status: Active Allergic purpura (287.0, D69.0) Status: Active Atopic dermatitis (691.8, L20.9) Status: Active Chronic laryngitis (476.0, J37.0) Status: Active Esophageal reflux (530.81, K21.9) Status: Active Acute upper respiratory infection (465.9, J06.9) Status: Active Sore throat (462, J02.9) Status: Active Petechiae (782.7, R23.3) Status: Active Fever (780.60, R50.9) Status: Active Headache (784.0, R51) Status: Active Type 1 diabetes mellitus (250.01, E10.9) Status: Active Edema (782.3, R60.9) Status: Active 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, 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 Diabetes mellitus (250.00, E11.9) Status: Active Hypertension (401.9, I10) Status: Active Proteinuria (791.0, R80.9) Status: Active Vasculitis (447.6, I77.6) Status: Active Medications Name Dates Details Estradiol 1 MG Oral Tablet take one tablet by mouth every day Quantity: 30 Tablet * Started 07-Jun-2011 ActiveSimvastatin 20 MG Oral Tablet TAKE ONE TABLET BY MOUTH EVERY NIGHT AT BEDTIME * Quantity: 90 Tablet Refills: 0 * Started 20-Sep-2011 ActiveJanuvia 100 MG Oral Tablet take one tablet by mouth every day * Quantity: 90 Not Specified Refills: 3 * Started 18-Dec-2011 ActiveLosartan Potassium 50 MG Oral Tablet take one tablet by mouth every day * Quantity: 90 Not Specified Refills: 3 * Started 18-Dec-2011 ActiveCetirizine HCl - 10 MG Oral Tablet TAKE 1 TABLET BY MOUTH DAILY. * Quantity: 100 Tablet Refills: 0 * Started 18-Dec-2011 ActiveMultiple Vitamin Oral Tablet TAKE 1 TABLET DAILY. * Refills: 0 * Started 18-Dec-2011 ActiveGlyBURIDE 5 MG Oral Tablet TAKE 1 TABLET BY MOUTH TWO TIMES A DAY * Quantity: 120 Tablet Refills: 5 * Started ActiveMontelukast Sodium 10 MG Oral Tablet take one tablet by mouth every day * Quantity: 30 Tablet Refills: 5 * Started 13-Jun-2012 ActiveProAir HFA 108 (90 Base) MCG/ACT Inhalation Aerosol Solution INHALE TWO PUFFS THREE TIMES DAILY * Quantity: 1X8.5 GM Inhaler Refills: 0 * Started 16-Oct-2013 ActiveLantus SoloStar 100 UNIT/ML Subcutaneous Solution Pen-injector TAKE 80 UNITS EVERY NIGHT AT BEDTIME DX: 250.01 * Quantity: 45 ML Refills: 5 * Started ActiveAzaTHIOprine 50 MG Oral Tablet TAKE 3 TABLETS DAILY * Quantity: 90 Tablet Refills: 2 * Started ActiveTransderm-Scop 1.5 MG Transdermal Patch 72 Hour APPLY 1 PATCH below the ear EVERY 3 DAYS * Quantity: 3 Patch 72 Hour Refills: 0 * Started 08-Jul-2014 Active Allergies and Adverse Reactions Name Dates Details Zithromax TABS Status: Active MethylPREDNISolone Acetate SUSP Status: Active Past Medical History Name Dates Details History of fever (V13.89, Z87.898) Status: Resolved Cough (786.2, R05) Status: Resolved Sinusitis (473.9, J32.9) Status: Resolved Acute sinusitis (461.9, J01.90) Status: Resolved History of acute bronchitis (V12.69, Z87.09) Status: Resolved Otitis media of both ears (382.9, H66.93) Status: Resolved Pre-operative exam (V72.84, Z01.818) Status: Resolved Tenosynovitis of thumb (727.05, M65.88) Status: Resolved Asthmatic bronchitis (493.90, J45.909) Status: Resolved Procedures Procedure Dates Details Hand Incision Tendon Sheath Of A Finger Completed: Urinalysis, Reflex to Microscopic or Culture PRN 8005 Immunization Name Dates Details Td Administered on:07-Jun-2001 Family History Mother* Name Dates Details Family history of diabetes mellitus (V18.0, Z83.3) Status: Active Father* Name Dates Details Family history of diabetes mellitus (V18.0, Z83.3) Status: Active Social History Name Dates Details Current every day smoker (305.1, F17.200) Smoking Status* Current every day smoker Vital Signs Date Test Result Details 08-Jul-2014 15:34 BP Systolic 160 mm[Hg] Status: BP Diastolic 78 mm[Hg] Status: Heart Rate 88 /min Status: Weight 260.125 lb Status: Height 64 in Status: Body Mass Index Calculated 44.65 kg/m2 Status: Body Surface Area Calculated 2.19 Status: 23-Jun-2014 15:34 BP Systolic 119 mm[Hg] Status: BP Diastolic 71 mm[Hg] Status: Heart Rate 72 /min Status: Weight 258 lb Status: Body Mass Index Calculated 44.29 kg/m2 Status: Body Surface Area Calculated 2.18 Status: 11-Jun-2014 09:30 BP Systolic 152 mm[Hg] Status: BP Diastolic 84 mm[Hg] Status: Heart Rate 72 /min Status: Weight 268 lb Status: Body Mass Index Calculated 46 kg/m2 Status: Body Surface Area Calculated 2.22 Status: Results Date Description Value Details Resulted on: 23-Jun-2014 12:53 Urinalysis, reflex to Micro and Culture ([facility]) 8016 pH 6.0 Range: 5.0-7.5=Better SP GRAVITY 1.025 Range: 1.010-1.030=Better APPEARANCE Cloudy Range: Clear=Abnormal COLOR Dk Yellow Range: Straw-Yellow=Abnormal PROTEIN 100 mg/dL Range: Negative-Trace=Abnormal GLUCOSE Negative mg/dL Range: Negative=Better KETONES Negative mg/dL Range: Negative=Better BILIRUBIN Negative Range: Negative=Better BLOOD 3+ Range: Negative=Abnormal UROBIL 0.2 EU/dL Range: 0.2-1.0=Better NITRITE Negative Range: Negative=Better LEUKOCYTES Negative Range: Negative=Better 13:16 CBC w/ Auto Diff 7150 Comments: Manual differential indicated. WBC 16.2 K/uL Range: 4.5-11.0=Above high threshold RBC 4.70 mil/uL Range: 3.60-5.00=Better HGB 13.2 g/dL Range: 12.0-16.0=Better HCT 41.2 % Range: 36.0-48.0=Better MCV 87.6 fL Range: 80.0-99.0=Better MCH 28.1 pg Range: 27.3-32.5=Better MCHC 32.1 % Range: 32.0-36.0=Better RDW 16.2 % Range: 11.6-14.8=Above high threshold PLATELETS 356 K/uL Range: 150-400=Better MPV 7.8 fL Range: 6.0-11.0=Better 13:24 RENAL PROFILE 1240 SODIUM 136 mmol/L Range: 133-144=Better POTASSIUM 3.6 mmol/L Range: 3.5-5.1=Better CHLORIDE 98 mmol/L Range: 98-110=Better CARBON DIOXIDE 31.1 mmol/L Range: 23.0-33.0=Better ANION GAP 7 mmol/L Range: 6-16=Better BUN 13 mg/dL Range: 7-18=Better CREATININE, SERUM 0.79 mg/dL Range: 0.43-1.13=Better EST GFR, >60 ml/min Range: >60=Better EST GFR, NON-AFR PARAGUAYAN >60 ml/min Range: >60=Better Comments: EST GFR is reported in ml/min per 1.73 m2 of body surface area. For -Trinidadian, please multiple result by 1.2.----- BUN:CREATININE RATIO 16 Better GLUCOSE 173 mg/dL Range: 70-100=Above high threshold ALBUMIN 3.1 g/dL Range: 3.4-5.0=Below low threshold PHOSPHORUS 3.5 mg/dL Range: 2.5-4.9=Better CALCIUM 9.4 mg/dL Range: 8.5-10.1=Better 13:24 C REACTIVE PROTEIN, CRP 2030 C REACTIVE PROTEIN 1.9 mg/dL Range: 0.0-0.9=Above high threshold 13:24 IgA 1118 IgA 743 mg/dL Range: 87-474=Above high threshold 13:32 BNP 3103 BNP 32.1 pg/mL Range: 0.0-100.0=Better 13:57 Manual Differential 7400 SEGS 77 % Range: 37-80=Better BANDS 4 % Range: 0-7=Better LYMPH 17 % Range: 13-50=Better MONO 1 % Range: 0-12=Better EOSIN 1 % Range: 0-7=Better BASO 0 % Range: 0-3=Better MARIBEL LYMPH 0 % Range: 0-0=Better META 0 % Range: 0-0=Better MYELO 0 % Range: 0-0=Better PRO 0 % Range: 0-0=Better BLAST 0 % Range: 0-0=Better NUC RBC 0 /100 WBC Range: 0-0=Better SMUDGE 0 /100 WBC Better PLATELET Adequate Range: Adequate=Better 14:32 Urine Microscopic UMIC WBC 3-5 /HPF Range: 0-5=Better RBC 21-50 /HPF Range: 0-2=Abnormal BACTERIA Trace /HPF Range: Negative-Trace=Better EPITH 0-2 /HPF Range: 0-10=Better 14:41 URINE PROT CREAT RATIO 1193 PROTEIN, URINE 402.6 mg/dL Range: 0.0-11.9=Above high threshold Comments: Verified by Repeat Analysis----- URINE CREATININE 106.3 mg/dL Range: 30.0-125.0=Better SPOT URINE PROT:CRE RATIO 3.79 Better Comments: The random urinary lyekuvx-bp-rzclrnmodu ratio may be a valuable alternative to a 24 hour urine collection for diagnosis of significant proteinuria. Ratios less than 0.14 are correlated with a 24 hour urine protein of 300 mg or less.----- 30-Jun-2014 16:12 CBC w/ Auto Diff 7150 Comments: Manual differential indicated. WBC 15.3 K/uL Range: 4.5-11.0=Above high threshold RBC 4.64 mil/uL Range: 3.60-5.00=Better HGB 13.1 g/dL Range: 12.0-16.0=Better HCT 40.2 % Range: 36.0-48.0=Better MCV 86.7 fL Range: 80.0-99.0=Better MCH 28.2 pg Range: 27.3-32.5=Better MCHC 32.5 % Range: 32.0-36.0=Better RDW 15.5 % Range: 11.6-14.8=Above high threshold PLATELETS 323 K/uL Range: 150-400=Better MPV 8.0 fL Range: 6.0-11.0=Better 16:23 Comprehensive Metabolic Panel 1212 SODIUM 136 mmol/L Range: 133-144=Better POTASSIUM 3.8 mmol/L Range: 3.5-5.1=Better CHLORIDE 99 mmol/L Range: 98-110=Better CARBON DIOXIDE 29.8 mmol/L Range: 23.0-33.0=Better ANION GAP 7 mmol/L Range: 6-16=Better BUN 14 mg/dL Range: 7-18=Better CREATININE, SERUM 0.85 mg/dL Range: 0.43-1.13=Better BUN:CREATININE RATIO 16 Better EST GFR, >60 ml/min Range: >60=Better EST GFR, NON-AFR PARAGUAYAN >60 ml/min Range: >60=Better Comments: EST GFR is reported in ml/min per 1.73 m2 of body surface area. For -Trinidadian, please multiple result by 1.2.----- GLUCOSE 249 mg/dL Range: 70-100=Above high threshold Comments: Variance from previous testing noted.----- ALK PHOSPHATASE 93 U/L Range: 46-116=Better Comments: Please Note: New Reference Range effective 2013.----- TOTAL BILIRUBIN 0.50 mg/dL Range: 0.20-1.00=Better AST 21 U/L Range: 8-35=Better ALT 23 U/L Range: 12-78=Better ALBUMIN 3.0 g/dL Range: 3.4-5.0=Below low threshold TOTAL PROTEIN 7.8 g/dL Range: 6.4-8.2=Better A/G RATIO 0.6 units Range: 1.0-1.8=Below low threshold CALCIUM 9.1 mg/dL Range: 8.5-10.1=Better 16:29 BNP 3103 BNP 54.6 pg/mL Range: 0.0-100.0=Better 16:32 Manual Differential 7400 SEGS 73 % Range: 37-80=Better BANDS 0 % Range: 0-7=Better LYMPH 21 % Range: 13-50=Better MONO 4 % Range: 0-12=Better EOSIN 2 % Range: 0-7=Better BASO 0 % Range: 0-3=Better MARIBEL LYMPH 0 % Range: 0-0=Better META 0 % Range: 0-0=Better MYELO 0 % Range: 0-0=Better PRO 0 % Range: 0-0=Better BLAST 0 % Range: 0-0=Better NUC RBC 0 /100 WBC Range: 0-0=Better SMUDGE 0 /100 WBC Better PLATELET Adequate Range: Adequate=Better 03-Jul-2014 09:18 LIPID PROFILE 1184 Comments: Fastin hours CHOLESTEROL 204 mg/dL Range: <200=Above high threshold TRIGLYCERIDES 156 mg/dL Range: 30-200=Better HDL Cholesterol 63 mg/dL Range: >39=Better NON HDL CHOLESTEROL 141 Better CARDIAC RSK FACTOR 3.2 units Range: 4.4-5.0=Below low threshold LDL - CALCULATED 110 mg/dL Range: 0-130=Better 09:30 HEMOGLOBIN A1C 3507 Comments: Fastin hours Hemoglobin A1C 8.8 % Better ESTIMATED AVG. GLUCOSE 206 Better Plan of Care Instructions* Instructions not documented Planned Observations* Name Dates Details Planned Goals not documented Goal Planned Encounters* Appointment; Provider: Vladislav Ponce On 14-Sep-2014 10:15 * Appointment; Provider: Mann Avery On 28-Aug-2014 15:45 Instructions * No Known Instructions Encounters Appointment; Mann Avery Encounter Diagnosis: Problem [...] documented On 14-Jun-2013 08:30 Appointment; Mann Avery Diagnosis: Problem not documented On 29-Jan-2013 13:00 Appointment; Lionel Garcia Encounter Diagnosis: Problem not documented On 27-Jan-2013 15:30 Appointment; Mann Avery Encounter Diagnosis: Problem not documented On 25-Nov-2012 14:45 Appointment; Mann Avery Encounter Diagnosis: Problem not documented On 04-Nov-2012 12:45 Appointment; Benji Cabrera Encounter Diagnosis: Problem not documented On 07-Aug-2012 15:30 Appointment; Mann Avery Diagnosis: Problem not documented On 26-Jul-2012 13:00
--- OUTSIDE RECORDS SUMMARY | 2017-02-01 15:12 | XMS REPORT | Summary of Care ---
Author Author Mann Avery D.O. Organization Unknown Address Unknown Phone Unavailable Care Team Providers Care Instrumentation Technician Name Role Phone Mann Avery D.O. [...] 0 Mann Avery D.O.* Started 19-Oct-2014 ActiveNystatin 295323 UNIT/ML Mouth/Throat Suspension CHEW 5 ML Twice daily Swish and Swallow * Quantity: 1 Refills: 1 Mann Avery D.O.* Started 19-Oct-2014 Sulhib82 ML Bottle Levofloxacin 500 MG Oral Tablet [...] 16:28 Urinalysis, reflex to Micro and Culture ([facility]) 8016 pH 6.0 (Better) Range: 5.0-7.5 [...] ml/min (Better) Range: >60 EST GFR, NON-AFR ISRAELI >60 ml/min (Better) Range: >60 Comments: EST GFR is reported in ml/min per 1.73 m2 of body surface area. For -Montenegrin, please multiple result by 1.2.----- GLUCOSE 337 [...]
--- OUTSIDE RECORDS SUMMARY | 2017-02-01 15:12 | XMS REPORT | Summary of Care ---
Author Author Mann Avery D.O. Organization Unknown Address Unknown Phone Unavailable Care Team Providers Care Director Of Food And Nutrition Services Name Role Phone Mann Avery D.O. Unavailable [...] 1 diabetes mellitus (250.01, E10.9) Status: Active Type 2 diabetes mellitus (250.00, E11.9) Status: Active Proteinuria (791.0, R80.9) Status: Active Hematuria (599.70, R31.9) Status: Active Nephrolithiasis (592.0, N20.0) Status: Active Medications Name Dates Details Estradiol [...] DAILY * Quantity: 90 Refills: 5 Vladislav Ponec M.D.* Started ActiveFluconazole 150 MG Oral Tablet Take 1 tablet daily * Quantity: 7 Refills: 0 Mann Avery D.O.* Started 19-Oct-2014 ActiveNystatin 918443 UNIT/ML Mouth/Throat Suspension CHEW 5 ML Twice daily Swish and Swallow * Quantity: 1 Refills: 1 Mann Avery D.O.* Started 19-Oct-2014 [id number] ML Bottle Levofloxacin 500 MG Oral Tablet [...] smoked Vital Signs Date Test Result Details 09-Nov-2014 10:48 BP Systolic 148 mm[Hg] Status: BP Diastolic 82 mm[Hg] Status: 30-Oct-2014 09:22 BP Systolic 146 mm[Hg] Status: [...] m2 Status: Results Date Description Value Details 19-Oct-2014 16:27 XRay CHEST-PA & LAT Comments: Exam Date: 16: 09Dictation Date: 16:27 X CHEST PA & LAT (Better) 28-Oct-2014 16:28 Urinalysis, reflex to Micro and Culture ([facility]) 8016 pH 6.0 (Better) Range: [...] ml/min (Better) Range: >60 EST GFR, NON-AFR RWANDAN >60 ml/min (Better) Range: >60 Comments: EST GFR is reported in ml/min per 1.73 m2 of body surface area. For -Ethiopian, please multiple result by 1.2.----- GLUCOSE 337 [...] % (Better) ESTIMATED AVG. GLUCOSE 275 (Better) 09-Nov-2014 09:39 CT AB/ PEL WITHOUT AND WITH ORAL AND IV CONTRAST Comments: Exam Date: 08:21Dictation Date: 09:39 XC ABD/PEL W/O & W/ (Better) 12:05 CYTOLOGY - URINE 4444 CYTOLOGY Specimen referred to [facility]. Report to follow. (Better) 11-Nov-2014 07:47 URINE CULTURE 5010 *URINE CULTURE Microbiology results (Better) Comments: URINE SOURCE: Clean CatchCOLONY COUNT50,000-75,000 cfu/ml. of 3 or more colony types of gram positive bacteria, (SUGGESTIVE OF CONTAMINATION).----- Plan of Care Planned Observations* Name Dates Details Planned Goals not documented Goal Planned Encounters* Appointment; Provider: Vladislav Ponce On 08-Feb-2015 15:45 * Appointment; Provider: Benji Olson On 18-Dec-2014 08:30 * Appointment; Provider: Mann Avery On 04-Dec-2014 13:30 Instructions * Instructions not documented Encounters Appointment; Benji Olson Encounter Diagnosis: Problem not [...]
--- OUTSIDE RECORDS SUMMARY | 2017-02-01 15:13 | XMS REPORT | Summary of Care ---
Author Author Mann Avery D.O. Organization Unknown Address Unknown Phone Unavailable Care Team Providers Care Artificial Flowers Dyer Name Role Phone Mann Avery D.O. Unavailable [...] 0 Mann Avery D.O.* Started 19-Oct-2014 ActiveNystatin 530661 UNIT/ML Mouth/Throat Suspension CHEW 5 ML Twice daily Swish and Swallow * Quantity: 1 Refills: 1 Mann Avery D.O.* Started 19-Oct-2014 [id number] ML Bottle Levofloxacin 500 MG Oral Tablet [...] Urinalysis, reflex to Micro and Culture ([facility]) 8016 pH 6.0 (Better) Range: 5.0-7.5 [...] ml/min (Better) Range: >60 EST GFR, NON-AFR KENYAN >60 ml/min (Better) Range: >60 Comments: EST GFR is reported in ml/min per 1.73 m2 of body surface area. For -Solomon Islander, please multiple result by 1.2.----- GLUCOSE 337 [...]
--- OUTSIDE RECORDS SUMMARY | 2017-02-01 15:13 | XMS REPORT | Summary of Care ---
Author Author Mann Avery D.O. Organization Unknown Address [address], [place] [id number] Phone Unavailable Care Team Providers Care Floorperson Name Role Phone Mann Avery D.O. Unavailable [...] Active Yeast infection (112.9, B37.9) Status: Active Sinusitis (473.9, J32.9) Status: Active Allergic rhinitis (477.9, J30.9) Status: Active Medications Name Dates Details Estradiol [...] Refills: 5 Mann Avery D.O.* Started 13-Jun-2012 ActiveFluconazole 150 MG Oral Tablet TAKE 1 TABLET DAILY DIRECTED. * Quantity: 7 Refills: 0 Mann Avery D.O.* Started 03-Jan-2013 ActiveProAir HFA 108 (90 Base) MCG/ACT Inhalation [...] 0 Mann Avery D.O.* Started 19-Oct-2014 ActiveNystatin 099525 UNIT/ML Mouth/Throat Suspension CHEW 5 ML Twice daily Swish and Swallow * Quantity: 1 Refills: 1 Mann Avery D.O.* Started 19-Oct-2014 Nedmbw87 ML Bottle Levofloxacin 500 MG Oral Tablet Take 1 tablet daily * Quantity: 7 Refills: 0 Mann Avery D.O.* Started 19-Oct-2014 ActiveTradjenta 5 MG Oral Tablet TAKE 1 TABLET DAILY DIRECTED. * Refills: 0 Mann Avery D.O.* Started 30-Oct-2014 ActiveLevofloxacin 500 MG Oral Tablet Take 1 tablet daily * Quantity: 10 Refills: 0 Mann Avery D.O.* Started 25-Nov-2014 ActiveCheratussin AC 100-10 MG/5ML Oral Syrup TAKE 1 TO 2 TEASPOONSFUL EVERY 4 TO 6 HOURS NEEDED FOR COUGH. * Quantity: 1 Refills: 0 Mann Avery D.O.* Started 25-Nov-2014 Vdqlls387 ML Bottle Invokana 100 MG Oral Tablet Take 1 tablet daily * Quantity: 30 Refills: 5 Mann Avery D.O.* Started 11-Jan-2015 ActiveLevofloxacin 500 MG Oral Tablet Take 1 tablet daily * Quantity: 7 Refills: 0 Mann Avery D.O.* Started ActiveNasonex 50 MCG/ACT Nasal Suspension INSTILL 2 SQUIRT Twice daily PRN * Refills: 6 Mann Avery D.O.* Started [id number] GM Inhaler Allergies and Adverse Reactions Name [...] not documented Immunization Name Dates Details Td Administered on:07-Jun-2001 [...] smoked Vital Signs Date Test Result Details 08:24 BP Systolic 126 mm[Hg] Status: BP Diastolic 66 mm[Hg] Status: Heart Rate 78 /min Status: Temperature 98.2 f Status: Results Date Description Value Details 08:09 HEMOGLOBIN A1C 3507 Hemoglobin A1C 10.0 % (Better) ESTIMATED AVG. GLUCOSE 240 (Better) Plan of Care Planned Observations* Name Dates Details Planned Goals not documented Goal Planned Encounters* Appointment; Provider: Benji Olson On 22-Jun-2015 16:00 * Appointment; Provider: Vladislav Ponce On 14:15 Instructions * Instructions not documented Encounters Appointment; Mann Avery Encounter Diagnosis: Problem not documented On 08:45 Appointment; Mann Avery Encounter Diagnosis: Problem not [...] documented On 14-Jul-2013 15:45 Appointment; Mann Avery Diagnosis: Problem not documented On 30-Jun-2013 15:30 Appointment; Mann Avery Encounter Diagnosis: Problem not documented On 24-Jun-2013 12:30 Appointment; Mann Avery Diagnosis: Problem not documented On 20-Jun-2013 16:15 Appointment; Mann Avery Encounter Diagnosis: Problem not documented On 18-Jun-2013 16:15 Appointment; Mann Avery Encounter Diagnosis: Problem not documented On 16-Jun-2013 09:00 Appointment; Dave Gilbert Encounter Diagnosis: Problem not documented On 14-Jun-2013 08:30
--- OUTSIDE RECORDS SUMMARY | 2017-02-01 15:13 | XMS REPORT | Summary of Care ---
Author Author Mann Avery D.O. Organization Unknown Address [address] [place], [place] [id number] Phone Unavailable Care Team Providers Care Trimmer Buffing Wheel Name Role Phone Mann Avery D.O. Unavailable [...] recurrence not specified (461.0, J01.00) Status: Active Medications Name Dates Details Estradiol [...] daily * Quantity: 30 Refills: 5 Bennie Asif.[email or web address].Mann * Start 11-Jan-2015 Active Nasonex 50 MCG/ACT Nasal Suspension INSTILL 2 SQUIRT Twice daily PRN * Refills: 6 Mann Avery D.O. * Start Active 17 GM Inhaler Levemir FlexTouch 100 UNIT/ML Subcutaneous Solution Pen-injector INJECT 80 UNIT Bedtime DX: E11.9 * Quantity: 75 Refills: 3 Avery D.Laine, Mann * Start 25-Feb-2016 Active Allergies and [...] smoked Vital Signs Date Test Result Details 26-Oct-2016 11:33 Temperature 98.4 f Status: Heart Rate 92 /min Status: Comments: Location: ; Weight 238 lb Status: Physical Findings 94 Status: Comments: O2 Saturation Body Mass Index Calculated 40.22 kg/m2 Status: Body Surface Area Calculated 2.12 m2 Status: 06-Oct-2016 15:31 BP Systolic 132 mm[Hg] Status: BP Diastolic 88 mm[Hg] Status: Heart Rate 76 /min Status: Comments: Location: ; Weight 238 lb Status: Body Mass Index Calculated 40.22 kg/m2 Status: Body Surface Area Calculated 2.12 m2 Status: Results Date Description Value Details [...] documented On 11-Jan-2015 15:30 Appointment; Benji Olson M.D.|F.A.C.S.|RIDDHI Dunn|RIDDHI Dunn, Encounter Diagnosis: Problem not documented On 18-Dec-2014 08:30 Appointment; Mann Avery D.O. Encounter Diagnosis: Problem not documented On 25-Nov-2014 14:00 Appointment; Benji Olson M.D.|Adis.C.S.|RIDDHI Dunn|Shaun,RIDDHI, Encounter Diagnosis: Problem not documented On 09-Nov-2014 10:30 Appointment; Mann Avery D.O. Encounter Diagnosis: Problem not documented On 30-Oct-2014 09:30"
--- OUTSIDE RECORDS SUMMARY | 2017-02-01 15:13 | XMS REPORT | Summary of Care ---
Author Author Mann Avery D.O. Organization Unknown Address [address] [place], [place] [id number] Phone Unavailable Care Team Providers Care Navy Material Inspector Name Role Phone Mann Avery D.O. Unavailable [...] 0 Mann Avery D.O.* Started 19-Oct-2014 ActiveNystatin 378022 UNIT/ML Mouth/Throat Suspension CHEW 5 ML Twice daily Swish and Swallow * Quantity: 1 Refills: 1 Mann Avery D.O.* Started 19-Oct-2014 [id number] ML Bottle Levofloxacin 500 MG Oral Tablet [...] Refills: 0 Mann Avery D.O.* Started 25-Nov-2014 [id number] ML Bottle Invokana 100 MG Oral Tablet Take 1 tablet daily * Quantity: 30 Refills: 5 Mann Avery D.O.* Started 11-Jan-2015 ActiveLevofloxacin 500 MG Oral Tablet Take 1 tablet daily * Quantity: 7 Refills: 0 Mann Avery D.O.* Started ActiveNasonex 50 MCG/ACT Nasal Suspension INSTILL 2 SQUIRT Twice daily PRN * Refills: 6 Mann Avery D.O.* Started Nctufc23 GM Inhaler Allergies and Adverse Reactions Name [...] Abdominal Hysterectomy With Removal Of Both Ovaries HEMOGLOBIN A1C 3507 Ordered: Immunization Name Dates Details Td Administered on:07-Jun-2001 [...] f Status: Results Date Description Value Details Results [...] documented On 02-Mar-2014 09:30 Appointment; Mann Avery Diagnosis: Problem not documented On 27-Jan-2014 12:45 Appointment; Mann Avery Diagnosis: Problem not documented On 10-Nov-2013 11:00 Appointment; Mann Avery Diagnosis: Problem not documented On 16-Oct-2013 11:45 Appointment; Mann Avery Diagnosis: Problem not documented On 29-Jul-2013 15:30 Appointment; Mann Avery Diagnosis: Problem not documented On 14-Jul-2013 15:45 [...]
--- OUTSIDE RECORDS SUMMARY | 2017-02-01 15:13 | XMS REPORT | Summary of Care ---
Author Author Mann Avery D.O. Organization Unknown Address [address], [place] [id number] Phone Unavailable Care Team Providers Care Service Desk Director Name Role Phone Mann Avery D.O. Unavailable [...] bronchitis, unspecified organism (466.0, J20.9) Status: Active Medications Name Dates Details Estradiol 1 MG Oral Tablet TAKE ONE TABLET BY MOUTH DAILY - PT NEEDS APPT Quantity: 30 Bennie Asif.Mann Jang * Start 06-Oct-2016 Active Simvastatin 20 MG Oral Tablet TAKE ONE TABLET BY MOUTH AT BEDTIME * Quantity: 90 Refills: 4 Mann Avery D.O. * Start 22-May-2016 Active Losartan Potassium 50 MG Oral Tablet Take one tablet by mouth daily * Quantity: 90 Refills: 1 Bennie Asif.Mann Jang * Start 18-Dec-2011 Active Cetirizine HCl - 10 MG Oral Tablet TAKE 1 TABLET BY MOUTH DAILY. * Quantity: 100 Refills: 0 Bennie Asif.Mann Jang * Start 18-Dec-2011 Active Multiple Vitamin TABS TAKE 1 TABLET DAILY. * Refills: 0 Lionel Garcia M.D. * Start 18-Dec-2011 Active GlyBURIDE 5 MG Oral Tablet Take One Tablet By Mouth Twice Daily * Quantity: 120 Refills: 0 Bennie Asif.Mann Jang Start 15-Sep-2016 Active Montelukast Sodium 10 MG [...] Quantity: 45 Refills: 5 Mann Avery D.O. Start Active AzaTHIOprine 50 MG Oral Tablet take 3 tablets by mouth every day * Quantity: 90 Refills: 11 Vladislav Ponce M.D. * Start Active Invokana 300 MG Oral Tablet Take 1 tablet daily * Quantity: 30 Refills: 5 Mann Avery D.O. * Start 11-Jan-2015 Active Nasonex 50 MCG/ACT Nasal Suspension INSTILL 2 SQUIRT Twice daily PRN * Refills: 6 Avery D.O., Mann * Start Active 17 GM Inhaler Levemir [...] smoked Vital Signs Date Test Result Details 12-Dec-2016 15:50 Temperature 98.6 f Status: Comments: Method: Heart Rate 86 /min Status: Comments: Location: ; Weight 226 lb Status: Physical Findings 99 Status: Comments: O2 Saturation Body Mass Index Calculated 38.19 kg/m2 Status: Body Surface Area Calculated 2.07 m2 Status: Results Date Description Value Details [...] not documented On 06-Oct-2016 15:30 Appointment; Mann Avrey D.O. Encounter Diagnosis: Problem not documented On [...] documented On 11-Jan-2015 15:30 Appointment; Benji Olson M.D.,FACS, Encounter Diagnosis: Problem not documented On 18-Dec-2014 08:30
--- OUTSIDE RECORDS SUMMARY | 2017-02-01 15:14 | XMS REPORT | Summary of Care ---
Author Author Mann Avery D.O. Organization Unknown Address [address], [place] [id number] Phone Unavailable Care Team Providers Care Value Analysis Coordinator Name Role Phone Mann Avery D.O. Unavailable [...] L65.9) Status: Active Medications Name Dates Details Losartan Potassium 50 MG Oral Tablet Take one tablet by mouth daily Quantity: 90 Bennie D.O.Mann * Start 18-Dec-2011 Active Cetirizine HCl - 10 MG Oral Tablet TAKE 1 TABLET BY MOUTH DAILY. * Quantity: 100 Refills: 0 Avery D.O.Mann * Start 18-Dec-2011 Active Lantus SoloStar 100 UNIT/ML Subcutaneous Solution Pen-injector INJECT 80 UNITS SUBCUTANEOUSLY EVERY NIGHT AT BEDTIMEDX: E11.9 * Quantity: 45 Refills: 5 Bennie D.Zechariah.Mann * Start Active AzaTHIOprine 50 MG Oral Tablet take 3 tablets by mouth every day * Quantity: 90 Refills: 11 Vladislav Ponce M.D. * Start Active Simvastatin 20 MG Oral Tablet TAKE ONE TABLET BY MOUTH AT BEDTIME * Quantity: 90 Refills: 4 Bennie D.O.Mann * Start 22-May-2016 Active Estradiol 1 MG Oral Tablet Take one tablet by mouth daily pt needs appt * Quantity: 30 Refills: 0 Bennie D.O.Mann * Start 06-Jul-2016 Active Nasonex 50 MCG/ACT Nasal Suspension INSTILL 2 SQUIRT Twice daily PRN * Refills: 6 Avery D.O.Mann * Start Active 17 GM Inhaler Levemir FlexTouch 100 UNIT/ML Subcutaneous Solution Pen-injector INJECT 80 UNIT Bedtime DX: E11.9 * Quantity: 75 Refills: 3 Avery D.O.Mann * Start 25-Feb-2016 Active LevoFLOXacin 500 MG Oral Tablet TAKE 1 TABLET DAILY DIRECTED. * Quantity: 10 Refills: 0 Avery D.O.Mann * Start 31-May-2015 Active Invokana 300 MG Oral Tablet Take 1 tablet daily * Quantity: 30 Refills: 5 Avery D.O.Mann * Start 11-Jan-2015 Active ProAir HFA 108 (90 Base) MCG/ACT Inhalation Aerosol Solution INHALE TWO PUFFS THREE TIMES DAILY * Quantity: 1 Refills: 0 Avery DMann Ramon * Start 16-Oct-2013 Active 8.5 GM Inhaler Montelukast Sodium 10 MG Oral Tablet take one tablet by mouth every day * Quantity: 30 Refills: 4 Mann Avery D.O. * Start 22-May-2016 Active GlyBURIDE 5 MG Oral Tablet Take One Tablet By Mouth Twice Daily * Quantity: 120 Refills: 5 Bennie Asif.Mann Jang * Start Active Multiple Vitamin TABS TAKE 1 TABLET DAILY. * Refills: 0 Lionel Garcia M.D. * Start 18-Dec-2011 Active Allergies and Adverse Reactions Name Dates [...] >60 ml/min Range: >60 EST GFR, NON-AFR TANZANIAN >60 ml/min Range: >60 Comments: EST GFR [...] <2 years of age----- 08-Sep-2016 07:46 Estradiol 237024 Comments: Testing performed at: [facility]DA] [facility], [address] [place] [address], [place], [address], Phone: , Floor Service Worker Spring: SNOW Burt MD Estradiol 118.7 pg/mL Comments: Adult Female: [...] documented On 11-Jan-2015 15:30 Appointment; Benji Olson M.D.|Jaiden|RIDDHI Dunn|Shaun,RIDDHI, Encounter Diagnosis: Problem not documented On 18-Dec-2014 [...] documented On 02-Oct-2014 07:45 Appointment; Vaughn London M.D.|Kevin.Stacie.C.S.|RIDDHI Dunn|Shaun,RIDDHI, Encounter Diagnosis: Problem not documented On 11-Sep-2014 09:00"
--- OUTSIDE RECORDS SUMMARY | 2017-02-01 15:14 | XMS REPORT | Summary of Care ---
Author Author Mann Avery D.O. Organization Unknown Address [address], [place] [id number] Phone Unavailable Care Team Providers Care Boat Repairer Name Role Phone Mann Avery D.O. Unavailable [...] - PT NEEDS APPT Quantity: 30 Bennie D.Zechariah.Mann * Start 06-Oct-2016 Active Simvastatin 20 MG [...] Ovaries Urinalysis, reflex to Micro and Culture ([facility]) 8016 Ordered: Jan-2017 Immunization Name [...] O2 Saturation Results Date Description Value Details Results not documented Plan of Care Name Dates Details Planned Observations Urinalysis, reflex to Micro and Culture ([facility]) 8016 On 2016 Intent Planned Goals not documented Planned Encounters Appointment; Provider: Vladislav Ponce M.D. On 13-Jul-2017 15:45 Interventions Provided Medication Changes* Ciprofloxacin HCl - 500 MG Oral Tablet - Start * Phenazopyridine HCl - 100 MG Oral Tablet - Start Instructions Name Dates Details Instructions not documented [...]
--- OUTSIDE RECORDS SUMMARY | 2017-02-01 15:14 | XMS REPORT | Summary of Care ---
Author Author Mann Avery D.O. Organization Unknown Address [address] [place], [place] [id number] Phone Unavailable Care Team Providers Care Personnel Representative Name Role Phone Mann Avery D.O. Unavailable [...] Abdominal Hysterectomy With Removal Of Both Ovaries Comprehensive Metabolic Panel 1212 Ordered: 07-Sep-2016 FREE T4 3604 Ordered: 07-Sep-2016 Estradiol [id number] Ordered: 07-Sep-2016 FOLLICLE STIM. HORMONE 3616 Ordered: 07-Sep-2016 THYROID STIM. HORMONE 3602 Ordered: 07-Sep-2016 Immunization Name Dates Details Td [...] Ponce M.D. On 13-Jul-2017 15:45 Interventions Provided Labs/Procedures/Imaging* Comprehensive Metabolic Panel 1212; To be Done: 07 Sep 2016 * Estradiol 135521; To be Done: 07 Sep 2016 * FOLLICLE STIM. HORMONE 3616; To be Done: 07 Sep 2016 * FREE T4 3604; To be Done: 07 Sep 2016 * THYROID STIM. HORMONE 3602; To be Done: 07 Sep 2016 Instructions Name Dates Details Instructions not documented Encounters Appointment; Vladislav Ponce M.D. Encounter Diagnosis: Problem not documented On 07-Jul-2016 14:45 Appointment; Vladislav Ponce M.D. Encounter Diagnosis: Problem not documented On 07-Jun-2015 16:00 Appointment; Mann Avery D.O. Encounter Diagnosis: Problem not documented On 31-May-2015 15:45 Appointment; Mann Avery D.O. Encounter Diagnosis: Problem not documented On 08:45 Appointment; Mann Avrey D.O. Encounter Diagnosis: Problem not documented On 11-Jan-2015 15:30 Appointment; Benji Olson M.D.|F.Stacie.C.SJack|Shaun,RIDDHI|Shaun,RIDDHI, Encounter Diagnosis: Problem not documented On 18-Dec-2014 08:30 Appointment; Mann Avery D.O. Encounter Diagnosis: Problem not documented On 25-Nov-2014 14:00 Appointment; Benji Olson M.D.|NicoleC.S.|RIDDHI Dunn|RIDDHI Dunn, Encounter Diagnosis: Problem not documented On 09-Nov-2014 [...]
--- OUTSIDE RECORDS SUMMARY | 2017-02-01 15:14 | XMS REPORT | Summary of Care ---
Author Author Mann Avery D.O. Organization Unknown Address Unknown Phone Unavailable Care Team Providers Care Mortgage Protection Specialist Name Role Phone Mann Avery D.O. Unavailable [...] Quantity: 30 Mann Avery D.O.* Started 07-Jun-2011 ActiveCetirizine HCl - 10 MG Oral Tablet [...] Refills: 5 Mann Avery D.O.* Started 13-Jun-2012 ActiveLantus SoloStar 100 UNIT/ML Subcutaneous Solution Pen-injector [...] 0 Mann Avery D.O.* Started 19-Oct-2014 ActiveNystatin 272304 UNIT/ML Mouth/Throat Suspension CHEW 5 ML Twice daily Swish and Swallow * Quantity: 1 Refills: 1 Mann Avery D.O.* Started 19-Oct-2014 [id number] ML Bottle Levofloxacin 500 MG Oral Tablet Take 1 tablet daily * Quantity: 7 Refills: 0 Mann Avery D.O.* Started 19-Oct-2014 ActiveTradjenta 5 MG Oral Tablet TAKE 1 TABLET DAILY DIRECTED. * Refills: 0 Mann Avery D.O.* Started 30-Oct-2014 ActiveSimvastatin 20 MG Oral Tablet TAKE ONE TABLET BY MOUTH EVERY NIGHT AT BEDTIME * Quantity: 90 Refills: 3 Mann Avery D.O.* Started 20-Sep-2011 ActiveProAir HFA 108 (90 Base) MCG/ACT Inhalation Aerosol Solution INHALE TWO PUFFS THREE TIMES DAILY * Quantity: 1 Refills: 0 Mann Avery D.O.* Started 16-Oct-2013 Active8.5 GM Inhaler Losartan Potassium 50 MG Oral Tablet take one tablet by mouth every day * Quantity: 90 Refills: 2 Mann Avery D.O.* Started 18-Dec-2011 Active Allergies and Adverse Reactions Name [...] 16:28 Urinalysis, reflex to Micro and Culture ([facility]) 8016 pH 6.0 (Better) Range: [...] ml/min (Better) Range: >60 EST GFR, NON-AFR ZIMBABWEAN >60 ml/min (Better) Range: >60 Comments: EST GFR is reported in ml/min per 1.73 m2 of body surface area. For -Moroccan, please multiple result by 1.2.----- GLUCOSE 337 [...]
--- OUTSIDE RECORDS SUMMARY | 2017-02-01 15:14 | XMS REPORT | Summary of Care ---
Author Author Whitney Dunn, FACS, ,, Benji Arteaga Organization Unknown Address [address], [place] [phone] Phone Unavailable Care Team Providers Care Shuttle Van Driver Name Role Phone Mann Avery D.O. Unavailable [...] 0 Mann Avery D.O.* Started 19-Oct-2014 ActiveNystatin 999269 UNIT/ML Mouth/Throat Suspension CHEW 5 ML Twice daily Swish and Swallow * Quantity: 1 Refills: 1 Mann Avery D.O.* Started 19-Oct-2014 Aprxty90 ML Bottle Levofloxacin 500 MG Oral Tablet Take 1 tablet daily * Quantity: 7 Refills: 0 Mann Avery.Zechariah.* Started 19-Oct-2014 ActiveTradjenta 5 MG Oral Tablet [...] Abdominal Hysterectomy With Removal Of Both Ovaries URINE CULTURE 5010 Ordered:09-Nov-2014 CT AB/ PEL WITH IV AND ORAL [...] 16:28 Urinalysis, reflex to Micro and Culture ([facility]) 8016 pH 6.0 (Better) Range: 5.0-7.5 SP [...] ml/min (Better) Range: >60 EST GFR, NON-AFR BAHRAINI >60 ml/min (Better) Range: >60 Comments: EST GFR is reported in ml/min per 1.73 m2 of body surface area. For -Maltese, please multiple result by 1.2.----- GLUCOSE 337 [...] (Better) ESTIMATED AVG. GLUCOSE 275 (Better) 09-Nov-2014 12:05 CYTOLOGY - URINE 4444 CYTOLOGY Specimen referred to [facility]. Report to follow. (Better) Plan of Care Planned Observations* Name [...]
--- OUTSIDE RECORDS SUMMARY | 2017-02-01 15:15 | XMS REPORT | Summary of Care ---
Author Author Mann Avery D.O. Organization Unknown Address [address], [place] [phone] Phone Unavailable Care Team Providers Care Pharmacy Tech Customer Service Name Role Phone Mann Avery D.O. Unavailable [...] Status: Active Sinusitis (473.9, J32.9) Status: Active Medications Name Dates Details Estradiol [...] 0 Mann Avery D.O.* Started 19-Oct-2014 ActiveNystatin 046593 UNIT/ML Mouth/Throat Suspension CHEW 5 ML Twice daily Swish and Swallow * Quantity: 1 Refills: 1 Mann Avery D.O.* Started 19-Oct-2014 Paskgj11 ML Bottle Levofloxacin 500 MG Oral Tablet Take 1 tablet daily * Quantity: 7 Refills: 0 Mann Avery D.O.* Started 19-Oct-2014 ActiveLevofloxacin 500 MG Oral Tablet Take 1 tablet daily * Quantity: 10 Refills: 0 Mann Avery D.O.* Started 25-Nov-2014 ActiveCheratussin AC 100-10 MG/5ML Oral Syrup TAKE 1 TO 2 TEASPOONSFUL EVERY 4 TO 6 HOURS NEEDED FOR COUGH. * Quantity: 1 Refills: 0 Mann Avery D.O.* Started 25-Nov-2014 Kbpacr386 ML Bottle ProAir HFA 108 (90 Base) MCG/ACT Inhalation Aerosol Solution INHALE TWO PUFFS THREE TIMES DAILY * Quantity: 1 Refills: 0 Mann Avery D.O.* Started 16-Oct-2013 Active8.5 GM Inhaler Tradjenta 5 MG Oral Tablet TAKE 1 TABLET [...] 16:00 * Appointment; Provider: Vladislav Ponce On 08-Feb-2015 [...]
--- OUTSIDE RECORDS SUMMARY | 2017-02-01 15:15 | XMS REPORT | Summary of Care ---
Author Author Mann Avery D.O. Organization Unknown Address [address] [place], [place] [phone] Phone Unavailable Care Team Providers Care Insurance Office Manager Name Role Phone Mann Avery D.O. [...] 0 Mann Avery D.O.* Started 19-Oct-2014 ActiveNystatin 042448 UNIT/ML Mouth/Throat Suspension CHEW 5 ML Twice daily Swish and Swallow * Quantity: 1 Refills: 1 Mann Avery.Zechariah.* Started 19-Oct-2014 Eklxci42 ML Bottle Levofloxacin 500 MG Oral Tablet Take 1 tablet daily * Quantity: 7 Refills: 0 Mann Avery D.O.* Started 19-Oct-2014 ActiveTradjenta 5 MG Oral Tablet TAKE 1 TABLET DAILY DIRECTED. * Refills: 0 Mann Avery.Zechariah.* Started 30-Oct-2014 ActiveCheratussin AC 100-10 MG/5ML Oral Syrup TAKE 1 TO 2 TEASPOONSFUL EVERY 4 TO 6 HOURS NEEDED FOR COUGH. * Quantity: 1 Refills: 0 Mann Avery.Zechariah.* Started 25-Nov-2014 Aiqqbr988 ML Bottle Levofloxacin 500 MG Oral Tablet Take 1 tablet daily * Quantity: 10 Refills: 0 Mann Avery.O.* Started 25-Nov-2014 ActiveInvokana 100 MG Oral Tablet Take 1 tablet daily * Quantity: 30 Refills: 5 Mann Avery.Zechariah.* Started 11-Jan-2015 Active Allergies and Adverse Reactions Name Dates [...] m2 Status: Results Date Description Value Details 11-Jan-2015 17:01 Quant Microalbumin 1106 MICROALBUMIN, URINE 733.0 mg/L (Above high threshold) Range: <20.1 Comments: Verified by Repeat Analysis----- Plan of Care Planned Observations* Name Dates [...]
--- OUTSIDE RECORDS SUMMARY | 2017-02-01 15:15 | XMS REPORT | Summary of Care ---
Author Author Mann Avery D.O. Organization Unknown Address [address], [place] [phone] Phone Unavailable Care Team Providers Care Sink Maker Name Role Phone Mann Avery D.O. Unavailable [...] Active Allergic rhinitis (477.9, J30.9) Status: Active Sinusitis (473.9, J32.9) Status: Active [...] BY MOUTH DAILY * Quantity: 90 Refills: 0 Vladislav Ponce M.D.* Started ActiveNystatin 647063 UNIT/ML Mouth/Throat Suspension CHEW 5 ML Twice daily Swish and Swallow * Quantity: 1 Refills: 1 Mann Avery D.O.* Started 19-Oct-2014 Otrfdu06 ML Bottle Tradjenta 5 MG Oral Tablet TAKE 1 TABLET DAILY DIRECTED. * Refills: 0 Mann Avery D.O.* Started 30-Oct-2014 ActiveInvokana 300 MG Oral Tablet Take 1 tablet daily * Quantity: 30 Refills: 5 Mann Avery D.O.* Started 11-Jan-2015 ActiveNasonex 50 MCG/ACT Nasal Suspension INSTILL 2 SQUIRT Twice daily PRN * Refills: 6 Mann Avery D.O.* Started Rwnuku66 GM Inhaler Levofloxacin 500 MG Oral Tablet TAKE 1 TABLET DAILY DIRECTED. * Quantity: 10 Refills: 0 Mann Avery D.O.* Started 31-May-2015 Active Allergies and Adverse Reactions Name Dates [...] smoked Vital Signs Date Test Result Details 31-May-2015 15:39 BP Systolic 124 mm[Hg] Status: BP Diastolic 68 mm[Hg] Status: Temperature 99.4 f Status: Heart Rate 97 /min Status: Weight 244 lb Status: O2 SAT 95 % Status: Body Mass Index Calculated 41.24 kg/m2 Status: Body Surface Area Calculated 2.14 m2 Status: Results Date Description Value Details Results not documented Plan of Care Planned Observations* Name Dates Details Planned Goals not documented Goal Planned Encounters* Appointment; Provider: Benji Olson On 22-Jun-2015 16:00 * Appointment; Provider: Vladislav Ponce On 07-Jun-2015 16:00 Instructions * Instructions not documented Encounters Appointment; Mann Avery Encounter Diagnosis: Problem not documented On 31-May-2015 15:45 Appointment; Mann Avery Encounter Diagnosis: Problem [...]
--- OUTSIDE RECORDS SUMMARY | 2017-02-01 15:15 | XMS REPORT | Summary of Care ---
Author Author aMnn Avery D.O. Organization Unknown Address [address], [place] [phone] Phone Unavailable Care Team Providers Care Rapid Transit Operator Name Role Phone Mann Avery D.O. [...] * Start 16-Oct-2013 Active 8.5 GM Inhaler Nasonex 50 MCG/ACT Nasal Suspension INSTILL 2 SQUIRT Twice daily PRN * Refills: 6 Mann Avery D.O. * Start Active 17 GM Inhaler Invokana 300 MG Oral Tablet Take 1 tablet daily * Quantity: 30 Refills: 5 Mann Avery D.O. * Start 11-Jan-2015 Active Lantus SoloStar 100 UNIT/ML Subcutaneous Solution Pen-injector INJECT 80 UNITS SUBCUTANEOUSLY EVERY NIGHT AT BEDTIMEDX: E11.9 * Quantity: 45 Refills: 5 Mann Avery D.O. * Start Active Levemir FlexTouch 100 UNIT/ML Subcutaneous Solution Pen-injector INJECT 80 UNIT Bedtime DX: E11.9 * Quantity: 75 Refills: 3 Bennie Asif.Mann Jang * Start 25-Feb-2016 Active AzaTHIOprine 50 MG Oral Tablet take 3 tablets by mouth every day * Quantity: 90 Refills: 11 Vladislav Ponce M.D. Start Active Allergies and Adverse Reactions Name Dates [...] smoked Vital Signs Date Test Result Details 21-Sep-2016 14:56 BP Systolic 136 mm[Hg] Status: [...] >60 ml/min Range: >60 EST GFR, NON-AFR [place] RICAN >60 ml/min Range: >60 Comments: EST GFR [...] <2 years of age----- 08-Sep-2016 07:46 Estradiol [id number] Comments: Testing performed at: [DA] [facility], [address] [place] [address], [place], [address], Phone: , Printed Circuit Boards Inspector: SNOW Burt MD Estradiol 118.7 pg/mL Comments: [...] Provider: Vladislav Ponce M.D. On 13-Jul-2017 15:45 Appointment; Provider: Mann Avery D.O. On 06-Oct-2016 15:30 Instructions Name Dates Details Instructions not documented [...] documented On 11-Jan-2015 15:30 Appointment; Benji Olson M.D.|Adis.C.SJack|Shaun,RIDDHI|Shaun,RIDDHI, Encounter Diagnosis: Problem not documented On 18-Dec-2014 [...] Encounter Diagnosis: Problem not documented On 02-Oct-2014 07:45"
--- OUTSIDE RECORDS SUMMARY | 2017-02-01 15:15 | XMS REPORT | Summary of Care ---
Author Author Mann Avery D.O. Organization Unknown Address Unknown Phone Unavailable Care Team Providers Care Bar Tacker Sewing Machine Name Role Phone Mann Avery D.O. Unavailable [...] 0 Mann Avery D.O.* Started 19-Oct-2014 ActiveNystatin 032055 UNIT/ML Mouth/Throat Suspension CHEW 5 ML Twice daily Swish and Swallow * Quantity: 1 Refills: 1 Mann Avery D.O.* Started 19-Oct-2014 Tigghb05 ML Bottle Levofloxacin 500 MG Oral Tablet Take 1 tablet daily * Quantity: 7 Refills: 0 Mann Avery.O.* Started 19-Oct-2014 ActiveTradjenta 5 MG Oral Tablet [...] 1 Refills: 0 Mann Avery.Zechariah.* Started 25-Nov-2014 Ejsmxt148 ML Bottle Allergies and Adverse Reactions Name [...] smoked Vital Signs Date Test Result Details 25-Nov-2014 14:15 BP Systolic 116 mm[Hg] Status: BP Diastolic 72 mm[Hg] Status: Heart Rate 90 /min Status: Temperature 98.6 f Status: Weight 265 lb Status: O2 SAT 95 % Status: Body Mass Index Calculated 44.78 kg/m2 Status: Body Surface Area Calculated 2.22 m2 Status: 09-Nov-2014 10:48 BP Systolic 148 mm[Hg] Status: BP Diastolic 82 mm[Hg] Status: 30-Oct-2014 09:22 BP Systolic 146 mm[Hg] Status: BP Diastolic 84 mm[Hg] Status: Heart Rate 96 /min Status: Temperature 98.5 f Status: Weight 263 lb Status: Body Mass Index Calculated 44.45 kg/m2 Status: Body Surface Area Calculated 2.21 m2 Status: Results Date Description Value Details 28-Oct-2014 16:28 Urinalysis, reflex to Micro and Culture ([facility]) 8016 pH 6.0 (Better) Range: [...] ml/min (Better) Range: >60 EST GFR, NON-AFR MONTENEGRIN >60 ml/min (Better) Range: >60 Comments: EST GFR is reported in ml/min per 1.73 m2 of body surface area. For -Cuban, please multiple result by 1.2.----- GLUCOSE 337 [...] - URINE 4444 CYTOLOGY Specimen referred to [facility]. Report to follow. (Better) 11-Nov-2014 07:47 URINE CULTURE 5010 *URINE CULTURE Microbiology results (Better) Comments: URINE SOURCE: Clean CatchCOLONY COUNT50,000-75,000 cfu/ml. of 3 or more colony types of gram positive bacteria, (SUGGESTIVE OF CONTAMINATION).----- Plan of Care Planned Observations* Name Dates Details Planned Goals not documented Goal Planned Encounters* Appointment; Provider: Vladislav Ponce On 08-Feb-2015 15:45 * Appointment; Provider: Mann Avery On 23-Dec-2014 15:30 * Appointment; Provider: Benji Olson On 18-Dec-2014 08:30 Instructions * Instructions not documented Encounters Appointment; Mann Avery Encounter Diagnosis: Problem not documented On 25-Nov-2014 14:00 Appointment; Benji Olson Encounter Diagnosis: Problem not documented On 09-Nov-2014 10:30 Appointment; Mann Avery Encounter Diagnosis: Problem not documented On 30-Oct-2014 09:30 Appointment; aMnn Avery Encounter Diagnosis: Problem not documented On [...]
--- OUTSIDE RECORDS SUMMARY | 2017-02-01 15:16 | XMS REPORT | Summary of Care ---
Author Author Mann Avery D.O. Organization Unknown Address [address], [place] [phone] Phone Unavailable Care Team Providers Care Place Change Roof Bolter Name Role Phone Mann Avery D.O. Unavailable [...] 7 Refills: 0 Mann Avery.Zechariah.* Started 19-Oct-2014 ActiveNystatin 744188 UNIT/ML Mouth/Throat Suspension CHEW 5 ML Twice daily Swish and Swallow * Quantity: 1 Refills: 1 Mann AveryO.* Started 19-Oct-2014 Oteikx64 ML Bottle Levofloxacin 500 MG Oral Tablet Take 1 tablet daily * Quantity: 7 Refills: 0 Mann Avery.O.* Started 19-Oct-2014 ActiveTradjenta 5 MG Oral Tablet TAKE 1 TABLET DAILY DIRECTED. * Refills: 0 Mann Avery.Zechariah.* Started 30-Oct-2014 ActiveLevofloxacin 500 MG Oral Tablet Take 1 tablet daily * Quantity: 10 Refills: 0 Mann Avery.Zechariah.* Started 25-Nov-2014 ActiveCheratussin AC 100-10 MG/5ML Oral Syrup TAKE 1 TO 2 TEASPOONSFUL EVERY 4 TO 6 HOURS NEEDED FOR COUGH. * Quantity: 1 Refills: 0 Mann Avery D.O.* Started 25-Nov-2014 Omcibn915 ML Bottle Invokana 100 MG Oral Tablet [...] documented On 18-Jun-2013 16:15 Appointment; Mann Avery Diagnosis: Problem not documented On 16-Jun-2013 09:00 Appointment; Dave Gilbert Encounter Diagnosis: Problem not documented On 14-Jun-2013 08:30
--- OUTSIDE RECORDS SUMMARY | 2017-02-01 15:16 | XMS REPORT | Summary of Care ---
Author Author Mann Avery D.O. Organization Unknown Address [address] [place], [place] [phone] Phone Unavailable Care Team Providers Care Market Analyst Name Role Phone Mann Avery D.O. Unavailable [...] 0 Mann Avery D.O.* Started 19-Oct-2014 ActiveNystatin 960438 UNIT/ML Mouth/Throat Suspension CHEW 5 ML Twice daily Swish and Swallow * Quantity: 1 Refills: 1 Mann Avery D.O.* Started 19-Oct-2014 Nplwyu58 ML Bottle Levofloxacin 500 MG Oral Tablet [...] 1 Refills: 0 Mann Avery.Zechariah.* Started 25-Nov-2014 Wsnvav514 ML Bottle Allergies and Adverse Reactions Name [...]
--- OUTSIDE RECORDS SUMMARY | 2017-02-01 15:16 | XMS REPORT | Summary of Care ---
Author Author Mann Avery D.O. Organization Unknown Address Unknown Phone Unavailable Care Team Providers Care Judicial Law Clerk Name Role Phone Mann Avery D.O. Unavailable [...] R80.9) Status: Active Medications Name Dates Details Losartan Potassium 50 MG Oral Tablet take one tablet by mouth every day Quantity: 90 Mann Avery D.O.* Started 18-Dec-2011 ActiveCetirizine HCl [...] 0 Mann Avery D.O.* Started 19-Oct-2014 ActiveNystatin 873356 UNIT/ML Mouth/Throat Suspension CHEW 5 ML Twice daily Swish and Swallow * Quantity: 1 Refills: 1 Mann Avery D.O.* Started 19-Oct-2014 [id number] ML Bottle Levofloxacin 500 MG Oral Tablet Take 1 tablet daily * Quantity: 7 Refills: 0 Mann Avery D.O.* Started 19-Oct-2014 ActiveTradjenta 5 MG Oral Tablet TAKE 1 TABLET DAILY DIRECTED. * Refills: 0 Mann Avery D.O.* Started 30-Oct-2014 ActiveSimvastatin 20 MG Oral Tablet TAKE ONE TABLET BY MOUTH EVERY NIGHT AT BEDTIME * Quantity: 90 Refills: 3 Mann Avery D.O.* Started 20-Sep-2011 ActiveEstradiol 1 MG Oral Tablet take one tablet by mouth every day * Quantity: 30 Refills: 5 Mann Avery D.O.* Started 07-Jun-2011 Active Allergies and Adverse Reactions Name Dates [...] ml/min (Better) Range: >60 EST GFR, NON-AFR MAURITANIAN >60 ml/min (Better) Range: >60 Comments: EST GFR is reported in ml/min per 1.73 m2 of body surface area. For -[place]er, please multiple result by 1.2.----- GLUCOSE [...]
--- OUTSIDE RECORDS SUMMARY | 2017-02-01 15:16 | XMS REPORT | Summary of Care ---
Author Author Mann Avery D.O. Organization Unknown Address Unknown Phone Unavailable Care Team Providers Care Geopolitics Teacher Name Role Phone Mann Avery D.O. [...] 0 Mann Avery D.O.* Started 19-Oct-2014 ActiveNystatin 478474 UNIT/ML Mouth/Throat Suspension CHEW 5 ML Twice daily Swish and Swallow * Quantity: 1 Refills: 1 Mann Avery D.O.* Started 19-Oct-2014 [id number] ML Bottle Levofloxacin 500 MG Oral Tablet [...] 16:28 Urinalysis, reflex to Micro and Culture ([facility]) 8016 pH 6.0 (Better) Range: [...] ml/min (Better) Range: >60 EST GFR, NON-AFR PALAUAN >60 ml/min (Better) Range: >60 Comments: EST GFR is reported in ml/min per 1.73 m2 of body surface area. For -Comoran, please multiple result by 1.2.----- GLUCOSE 337 [...]
--- OUTSIDE RECORDS SUMMARY | 2017-02-01 15:16 | XMS REPORT | Summary of Care ---
Author Author Heriberto Mckeon D.O. Organization Unknown Address [address], [place] [id number] Phone Unavailable Care Team Providers Care Oven Heater Name Role Phone Mann Avery D.O. Unavailable [...] 0 Mann Avery D.O.* Started 19-Oct-2014 ActiveNystatin 173302 UNIT/ML Mouth/Throat Suspension CHEW 5 ML Twice daily Swish and Swallow * Quantity: 1 Refills: 1 Mann Avery D.O.* Started 19-Oct-2014 [id number] ML Bottle Tradjenta 5 MG Oral Tablet TAKE 1 TABLET DAILY DIRECTED. * Refills: 0 Mann Avery.O.* Started 30-Oct-2014 ActiveLevofloxacin 500 MG Oral Tablet Take 1 tablet daily * Quantity: 7 Refills: 0 Mann Avery.O.* Started 19-Oct-2014 Active Allergies and Adverse Reactions Name Dates [...] 16:28 Urinalysis, reflex to Micro and Culture ([facility]) 8016 pH 6.0 (Better) [...] ml/min (Better) Range: >60 EST GFR, NON-AFR CENTRAL AFRICAN >60 ml/min (Better) Range: >60 Comments: EST GFR is reported in ml/min per 1.73 m2 of body surface area. For -Kenyan, please multiple result by 1.2.----- GLUCOSE 337 [...]
--- OUTSIDE RECORDS SUMMARY | 2017-02-01 15:17 | XMS REPORT | Summary of Care ---
Author Author Surya Dunn, FACS,, [place] Organization Unknown Address [address], [place] [id number] Phone Unavailable Care Team Providers Care Repair Supervisor Name Role Phone Mann Avery D.O. [...] tablet by mouth every day Quantity: 30 Mnan Avery D.O.* Started 07-Jun-2011 ActiveSimvastatin 20 MG [...] 0 Mann Avery D.O.* Started 19-Oct-2014 ActiveNystatin 786272 UNIT/ML Mouth/Throat Suspension CHEW 5 ML Twice daily Swish and Swallow * Quantity: 1 Refills: 1 Mann Avery D.O.* Started 19-Oct-2014 [id number] ML Bottle Levofloxacin 500 MG Oral Tablet [...] 16:28 Urinalysis, reflex to Micro and Culture ([facility]) 8016 pH 6.0 (Better) Range: 5.0-7.5 SP [...] ml/min (Better) Range: >60 EST GFR, NON-AFR MOLDOVAN >60 ml/min (Better) Range: >60 Comments: EST GFR is reported in ml/min per 1.73 m2 of body surface area. For -Mauritian, please multiple result by 1.2.----- GLUCOSE 337 [...]
--- OUTSIDE RECORDS SUMMARY | 2017-02-01 15:17 | XMS REPORT | Summary of Care ---
Author Author Mann Avery D.O. Organization Unknown Address [address], [place] [id number] Phone Unavailable Care Team Providers Care Racing Secretary And Handicapper Name Role Phone Mann Avery D.O. Unavailable [...] Quantity: 100 Refills: 0 Bennie Asif.Mann Jang Start 18-Dec-2011 Active Multiple Vitamin TABS TAKE 1 TABLET DAILY. * Refills: 0 Lionel Garcia M.D. * Start 18-Dec-2011 Active GlyBURIDE 5 MG Oral Tablet Take One Tablet By Mouth Twice Daily * Quantity: 120 Refills: 0 Bennie Asif.Mann Jang * Start 15-Sep-2016 Active Montelukast Sodium 10 [...] 11 Vladislav Ponce M.D. * Start Active Nasonex 50 MCG/ACT Nasal Suspension INSTILL 2 SQUIRT Twice daily PRN * Refills: 6 Mann Avery D.O. * Start Active 17 GM Inhaler Invokana 300 MG Oral Tablet Take 1 tablet daily * Quantity: 30 Refills: 5 Avery D.O., Mann * Start 11-Jan-2015 Active Levemir FlexTouch 100 UNIT/ML Subcutaneous Solution Pen-injector INJECT 80 UNIT Bedtime DX: E11.9 * Quantity: 75 Refills: 3 Avery D.O., Mann * Start 25-Feb-2016 Active Cheratussin AC 100-10 MG/5ML Oral Syrup TAKE 5 - 10 ML EVERY 4 TO 6 HOURS NEEDED FOR COUGH. * Quantity: 1 Refills: 0 Avery D.O., Mann * Start 12-Dec-2016 Active 118 ML Bottle LevoFLOXacin 500 MG Oral Tablet TAKE 1 TABLET DAILY UNTIL FINISHED * Quantity: 10 Refills: 0 Avery D.O., Mann * Start 12-Dec-2016 End 22-Dec-2016 Active Ventolin HFA 108 (90 Base) MCG/ACT Inhalation Aerosol Solution INHALE 2 PUFFS 3 times daily * Quantity: 1 Refills: 0 Avery D.O., Mann * Start 12-Dec-2016 Active 18 GM Inhaler Allergies and Adverse Reactions Name [...] m2 Status: Results Date Description Value Details 12-Dec-2016 15:31 XRay SINUS Comments: Exam Date: 12/12/2016 15:15Dictation Date: 12/12/2016 15:31 X SINUS COMP (MIN 3V) 15:32 XRay CHEST-PA & LAT Comments: Exam Date: 12/12/2016 15:14Dictation Date: 12/12/2016 15:32 X CHEST PA & LAT Plan of Care Name Dates Details Planned [...] documented On 11-Jan-2015 15:30 Appointment; Benji Olson M.D.,[facility], Encounter Diagnosis: Problem not documented On 18-Dec-2014 08:30
--- OUTSIDE RECORDS SUMMARY | 2017-02-01 15:17 | XMS REPORT | Summary of Care ---
Author Author Karin Lackey M.D. Unknown Address [address], [place] [phone] Phone Unavailable Care Team Providers Care Freight Elevator Operator Name Role Phone Mann Avery D.O. [...] R80.9) Status: Active Medications Name Dates Details Simvastatin 20 MG Oral Tablet TAKE ONE TABLET BY MOUTH EVERY NIGHT AT BEDTIME Quantity: 90 Mann Avery D.O.* Started 20-Sep-2011 ActiveLosartan Potassium [...] Refills: 0 Lionel Garcia M.D.* Started 18-Dec-2011 ActiveMontelukast Sodium 10 MG Oral Tablet take one tablet by mouth every day * Quantity: 30 Refills: 5 Mann Avery D.O.* Started 13-Jun-2012 ActiveProAir HFA 108 (90 Base) MCG/ACT Inhalation Aerosol Solution INHALE TWO PUFFS THREE TIMES DAILY * Quantity: 1 Refills: 0 Mann Aveyr D.O.* Started 16-Oct-2013 Active8.5 GM Inhaler Lantus [...] 0 Mann Avery D.O.* Started 19-Oct-2014 ActiveNystatin 901430 UNIT/ML Mouth/Throat Suspension CHEW 5 ML Twice daily Swish and Swallow * Quantity: 1 Refills: 1 Mann Avery D.O.* Started 19-Oct-2014 [id number] ML Bottle Levofloxacin 500 MG Oral Tablet Take 1 tablet daily * Quantity: 7 Refills: 0 Mann Avery D.O.* Started 19-Oct-2014 ActiveTradjenta 5 MG Oral Tablet TAKE 1 TABLET DAILY DIRECTED. * Refills: 0 Mann Avery D.O.* Started 30-Oct-2014 ActiveGlyBURIDE 5 MG Oral Tablet TAKE 1 TABLET BY MOUTH TWO TIMES A DAY * Quantity: 120 Refills: 5 Mann Avery D.O.* Started ActiveEstradiol 1 MG Oral Tablet take one [...] ml/min (Better) Range: >60 EST GFR, NON-AFR MARTINIQUAIS >60 ml/min (Better) Range: >60 Comments: EST GFR is reported in ml/min per 1.73 m2 of body surface area. For -Romanian, please multiple result by 1.2.----- GLUCOSE 337 [...]
[2017-02-01] MEDS ORDERED: GENTAMICIN 80 MG/2 ML INJECTION ONE (15:37)
[2017-02-01] MEDS ORDERED: IOHEXOL 300 MG/ML 50ml INJECTION ONE (15:38)
[2017-02-01] MEDS ORDERED: MONT10TA25 PO (16:20)
[2017-02-01] MEDS ORDERED: LOSA50TA52 PO (16:25)
[2017-02-01] MEDS ORDERED: ESTR2TAB5 PO (16:25)
[2017-02-01] MEDS ORDERED: AZAT50TA PO (16:37)
[2017-02-01] MEDS ORDERED: CANA300T (16:37)
[2017-02-01] MEDS ORDERED: ALBU18HF2 ORAL INH (16:37)
[2017-02-01] MEDS ORDERED: INSU100I21 SQ (16:37)
[2017-02-01] MEDS ORDERED: NORMAL SALINE 1,000 ML IV SCH ×2 (17:00→20:48)
[2017-02-01] MEDS ORDERED: KETOROLAC 30mg/ml INJECTION IV PRN ×2 (17:00→21:00)
--- NOTE | 2017-02-01 17:50 | ANESPREOP ---
Anesthesia Record Date and Time DATE: 02/01/17 TIME: 17:47 Pre-Op Diagnosis Right renal stone Proposed Surgical Procedure Cysto/ right retrograde NPO since: 1100 sips Allergies: Coded Allergies: methylprednisolone (Verified Allergy, Mild, 02/01/17) clindamycin (Verified Adverse Reaction, Unknown, 02/01/17) "coughing" Uncoded Allergies: z-pac (Allergy, Mild, 02/01/17) sores on legs Ht/Wt/BMI Height: 5 ' 5.00 " Weight: 104.900 kg BMI: 38.5 kg/m2 Vital Signs Date Time Temp Pulse Resp B/P Pulse Ox O2 Delivery O2 Flow Rate FiO2 02/01/17 16:09 98.3 85 16 177/94 98 Room Air Medications Inpatient Medications Current Medications Medications (Trade) Dose Ordered Sig/Violetta Start Time Stop Time Status Last Admin Dose Admin Sodium Chloride (Normal Saline IV) 1,000 ml @ 125 mls/hr Q8H 02/01/17 17:00 02/01/17 17:00 125 MLS/HR Ketorolac Tromethamine (Toradol) 30 mg Q6H PRN 02/01/17 17:00 02/01/17 17:06 30 MG Albuterol Sulfate (Ventolin HFA 90 mcg/actuation) 18 Gm Hfa.aer.ad, 1 PUFF ORAL INH Q4H PRN for SHORTNESS OF AIR/WHEEZING, (Reported) Last Taken: on Unknown Date & Time Azathioprine (Azathioprine) 50 Mg Tablet , 3 TAB PO DAILY, (Reported) Last Taken: on 01/31/172144 Canagliflozin (Invokana) 300 Mg Tablet, ( Reported) Last Taken: on 01/31/172143 Estradiol (Estrace) 2 Mg Tablet, 0.5 TAB PO DAILY, (Reported) Last Taken: on 01/31/172144 Insulin Detemir (Levemir Flextouch) 100 Unit/1 Ml Insuln.pen, 80 UNIT SQ HS, (Reported) Last Taken: on 01/31/172143 Losartan Potassium (Losartan Potassium) 50 Mg Tablet, 50 MG PO DAILY, (Reported) Last Taken: on 01/31/172144 Montelukast Sodium (Montelukast Sodium) 10 Mg Tablet, 10 MG PO HS, (Reported) Take 1 tablet, by mouth, one time a day (at bedtime). Last Taken: on 01/31/172144 Currently on Beta Jen: No Medical/Surgical History Anesthesia PMH: Reports: *Diabetes, *Hypertension, Asthma, Obesity, Denies: *MD , Blood Transfusion Reac, CHF, COPD, CVA/Stroke/TIA, Cancer, Seizures Smoking Status: Current every day smoker Has pt. smoked today?: No # of Packs per Day: 1/2 # of Years: 15 Use Chewing Tobacco?: No Second Hand Exposure: No Substance Use Type: does not use Alcohol Intake: rarely Past Surgical History Orthopedic Surgeries: Yes - PLATES AND SCREWS IN RIGHT ARM Abdominal Surgeries: Yes - GALLBLADDER Genitourinary Surgeries: Cardiac Surgeries: Endocrine Surgeries: Reproductive Surgeries: Yes - C SECTION X2, HYST Neurological Surgeries: Ear Surgeries: Nose Surgeries: Throat Surgeries: Other Surgeries: Yes - BREAST REDUCTION Anesthesia Adverse Reactions: FOUND none Family Hx of Anesthesia Advers: none Hx of Motion Sickness: No Pertinent Findings EKG Rhythm: Sinus Rhythm Physical Exam Respiratory: Lungs clear Cardiovascular: FOUND Regular rate, rhythm Airway Assessment Mallampati Score: II TMD: 3 Fingerbreadths Neck Extension: Good Overall Assessment: May Be Diff Mask Vent., May Be Diff Intubation ASA: 3 Plan Anesthesia Plan: GETA Discussion Discussed risks/options/alternatives of anesthesia and questions answered. Patient consents. Nursing pain assessment noted. Present: Family Member Attestation Statement Prior to the delivery of any anesthetic medication, I examined the patient, developed the plan, obtained the patient's consent and discussed the risk and benefits of the procedure with the patient/guardian. AKIL SIMMS INSTRUCTIONAL PARAPROFESSIONAL Feb 01, 2017 17:50
[2017-02-01] MEDS ORDERED: ONDANSETRON 4mg/2ml INJECTION ONE (19:58)
[2017-02-01] MEDS ORDERED: PROPOFOL 500mg 50 ML IV ONE (20:00)
[2017-02-01] MEDS ORDERED: FENTANYL 100mcg/2ml INJECTION ONE (20:08)
[2017-02-01] MEDS ORDERED: PROPOFOL 200mg 20 ML IV ONE ×2 (20:37→20:38)
[2017-02-01] MEDS ORDERED: HYDROMORPHONE 2mg/ml INJECTION IV PRN (20:45)
[2017-02-01] MEDS ORDERED: ONDANSETRON 4mg/2ml INJECTION IV PRN ×2 (20:45→21:00)
[2017-02-01] MEDS ORDERED: METOCLOPRAMIDE 10mg/2ml INJECTION IV PRN (20:45)
--- NOTE | 2017-02-01 20:58 | ANESPO ---
Post-Op Note Date 02/01/17 Time: 20:58 Status Pt Participated in Evaluation: Pt participated in person Vital Signs Date Time Temp Pulse Resp B/P Pulse Ox O2 Delivery O2 Flow Rate FiO2 02/01/17 16:30 85 16 02/01/17 16:09 98.3 177/94 98 Room Air Respiratory Function: Airway patent Cardiovascular Function: Regular pulse Telemetry Pattern: SR Mental Status: Alert/oriented Pain Level Intensity: 0 Hydration: IV infusing Complications during Recovery None apparent Follow-Up Instructions Instructions Per Surgeon AKIL SIMMS WOOD PRESERVING PLANT LABORER Feb 01, 2017 20:58
[2017-02-01] MEDS ORDERED: HYOSCYAMINE 0.125 MG SUBLINGUAL TABLET SL PRN (21:00)
[2017-02-01] MEDS ORDERED: ALBUTEROL HFA INHALER 8gm ORAL INH PRN (21:00)
[2017-02-01] MEDS ORDERED: HYDROCODONE/APAP 5 mg/325 mg TABLET PO PRN (21:00)
[2017-02-01] MEDS ORDERED: MORPHINE SULFATE 4 MG SYRINGE IV PRN (21:00)
[2017-02-01] MEDS ORDERED: PHENAZOPYRIDINE 95 MG TABLET PO PRN (21:00)
[2017-02-01] MEDS ORDERED: INSULIN REGULAR 100 UNIT/ML SQ PRN (21:00)
[2017-02-01] MEDS ORDERED: NITR100C PO (21:15)
[2017-02-01] MEDS ORDERED: HYOS-7 SL (21:15)
[2017-02-01] MEDS ORDERED: PHEN95TA25 PO (21:15)
[2017-02-01] MEDS ORDERED: HYDR-4246 PO (21:15)
[2017-02-01] MEDS ORDERED: MONTELUKAST 10 MG TABLET PO SCH (22:00)
--- NOTE | 2017-02-02 08:42 | DI ---
Indication: ITS.REASON: RT KIDNEY STONE PROCEDURE: RF RETROGRADE PYELOGRAM RIGHT: Encounter: Initial Comparison: None Findings: 16 fluoroscopic spot images are submitted for interpretation. Images show retrograde injection of contrast into the right renal collecting system with a normal appearance to the calyces. A right-sided double-J stent is placed. There is angioplasty performed in the area of the right mid ureter and also at the ureterovesicular junction region. Impression: Fluoroscopy as above. Please refer to the dictated procedural note for further details. Fluoroscopy time is 457 [place] [address] mRad. .
[2017-02-02] MEDS ORDERED: AZATHIOPRINE 50 MG TABLET PO SCH (09:00)
[2017-02-02] MEDS ORDERED: ESTRADIOL 2 MG TABLET PO SCH (09:00)
[2017-02-02] MEDS ORDERED: LOSARTAN 50 MG TABLET PO SCH (09:00)
--- NOTE | 2017-02-02 11:47 | OPNOTEF ---
DATE OF OPERATION 02/01/2017 PREOPERATIVE DIAGNOSIS Right renal colic, right kidney stone and possible right ureteral stone. POSTOPERATIVE DIAGNOSIS Right kidney stone and right ureteral strictures. OPERATION PERFORMED Cystoscopy with right retrograde pyelogram and ureteroscopic ureteral stricture dilations and ureteroscopic holmium laser lithotripsy with ureteral stent insertion. SURGEON Anthony Lopez MD ANESTHESIA GEN/TIVA INDICATION Mrs. Orosco is a 46-year-old diabetic woman with intermittent right renal colic pain over the past [id number]. She gets nauseated and unable to tolerate oral intake when pain comes. KUB showed large 1.4 cm stone in the right upper pole annette. Possible stone in the pelvic ureter versus phlebolith. She had been treated for urinary tract infection without response. It was suspected that she may have stone in the distal ureter but also the right upper pole renal caliceal stone has grown rapidly in size in the last couple of years. Therefore the stone will have to be treated. Instead of doing a CT scan, we decided to bring her in to do retrograde pyelogram and see if there is any stone in the ureter. If ureteral stone is found, it will be removed. Will then treat the upper caliceal stone with holmium laser lithotripsy with plan of finishing up by ESWL in another setting. DESCRIPTION OF PROCEDURE The patient was taken to the cystoscopy suite and, under intravenous anesthesia, the patient was placed in dorsal lithotomy position and prepped and draped in the usual fashion for a cystoscopic procedure. Fluoroscopy confirmed large stone in the upper pole annette. Distal ureter was difficult to see because of fecal material and bowel gas, but there was calcification more consistent with a phlebolith. A 21 Argentine cystoscope was inserted into the bladder. Bladder shows moderate trabeculation but no tumor, foreign body or stone. Ureteral orifices are normal in location and contour bilaterally. Right ureteral orifice was cannulated with a 5 Argentine open-ended ureteral catheter and contrast was injected under fluoroscopy. Distal ureter appeared normal with a more or less normal caliber ureter in the midportion of the ureter and the upper ureter. Renal collecting systems were visualized. Upper renal caliceal system appeared dilated and somewhat blunted with a filling defect representing the large stone. Ureteral catheter was attempted to be advanced, but we could not advance more than approximately a centimeter from the ureteral orifice . A 0.035 gauge guidewire was inserted into the catheter and advanced under fluoroscopic guidance into the renal pelvis. A 5-Argentine open-ended ureteral catheter was attempted to be advanced over the guidewire but ran into an obstruction just above the ureterovesical junction. Therefore the catheter was removed and replaced by 15 Argentine balloon dilator. Even the un-inflated portion of the balloon was difficult to insert over the guidewire, but with the maneuver we were able to do so. We then dilated the distal ureter to 15 Argentine and required 20 atmospheric fracture to fully dilate the ureter. There was a tight waist on the dilating balloon before it finally fully dilated. We then removed the dilating balloon over the guidewire and 7 Argentine high-definition ureteroscope was loaded over the guidewire, inserted into the ureter and, under direct vision, gradually advanced. Just above the dilated portion of the ureter there was another very tight annular stricture, but we were able to negotiate this over the guidewire and get by. We advanced the ureteroscope to upper ureter and ran into another annular band of tissue that was too tight to advance the scope. Multiple attempts failed. Therefore, the ureteroscope was removed over the guidewire and 12 Argentine balloon dilator was loaded over the guidewire. The proximal ureteral stricture was dilated to 12 Argentine under fluoroscopy. We were then able to advance the ureteroscope past the stricture area into the renal pelvis. Renal pelvis was completely visualized and each individual annette as well. There was a large dark stone in the upper pole annette. Using 374 micron holmium laser fiber at 10 malik, stone was fragmented. Stone was extremely hard and there was slow progress. The holmium power was increased to 12 malik and stone was fragmented with some difficulty and very slow progress due to the hardness of the stone. We did fragment the stone into numerous pieces although there were still some significant size stone fragments remaining. It was very difficult to continue the fragmentation with the laser scope as the stone fragment would move with each laser fiber energy delivery. Therefore the laser fiber was removed and ureteroscope was also removed with the guidewire in place. Cystoscope was then back-loaded over the guidewire and a 7 Argentine x 22 cm pigtail ureteral stent was inserted. This was all done under fluoroscopic guidance. Stent position was confirmed fluoroscopically and cystoscopically. Bladder was emptied out and the cystoscope removed. The patient tolerated the procedure well. MATHEW
== END 2017-02-01 23:45 | disposition home or self-care (01) ==
LOC: SCU 15:05 → SRG 15:38 → SCU 23:45
PROVIDERS: ATTEND Specialist
DX: N20.0 Calculus of kidney (principal); N13.5 Crossing vessel and stricture of ureter without hydronephrosis; I10 Essential (primary) hypertension; J30.9 Allergic rhinitis, unspecified; K21.9 Gastro-esophageal reflux disease without esophagitis; E11.65 Type 2 diabetes mellitus with hyperglycemia; Z79.4 Long term (current) use of insulin; Z79.84 Long term (current) use of oral hypoglycemic drugs; Z79.899 Other long term (current) drug therapy; Z88.1 Allergy status to other antibiotic agents; Z88.8 Allergy status to other drugs, medicaments and biological substances; Z90.49 Acquired absence of other specified parts of digestive tract; Z90.710 Acquired absence of both cervix and uterus
CPT/HCPCS: 82948; 99406